=== PATIENT | female | born 1985 | race Caucasian/White ===

== ENCOUNTER 2016-05-05 09:41 | Emergency (ER) | payer OTHER ==
[~2016-05-05] VITALS: Ht 165.1 cm; Wt 75.0 kg
[~2016-05-05 09:41] MED LIST: AUGM875T PO; IBUP-232 PO; METH750T2 PO; MOBI15TA PO
[2016-05-05 09:42] VITALS: BP 140/105; PULSE 100; RESP 20; TEMP 98; O2SAT 98
[2016-05-05 09:59] VITALS: BP 152/105; PULSE 104; RESP 18; O2SAT 99
[2016-05-05] MEDS ORDERED: oxyCODONE/ACETAMINOPHEN 5 MG/325 MG TAB PO ONE (10:15)
--- NOTE | 2016-05-05 10:21 | PD ---
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 States she found out her boyfriend was cheating on her and is concern about STD. Pt denies any current vaginal discharge but is on her menstrual period so have vaginal bleeding. Denies any fever, chest pain, sob, vomiting, abdominal pain. Pt states she has burning when she urinates. Denies any history of GC/chlamydia. PFSH Past Medical History Anxiety: Yes Depression: Yes Diminished Hearing: Yes Medical other: Yes (HERNIATED DISKS C4-T1, L4-5) ?: Not LMP: 05/05/2016 : 1 Para: 1 Past Surgical History Surgical History: No Previous Surgery Social History Alcohol Use: Yes (social) Tobacco Use: Yes (/2 ppd) Substance Use: No Allergies-Medications (Allergen,Severity, Reaction): Coded Allergies: No Known Allergies (Verified , 05/05/16) Reported Meds & Prescriptions Reported Meds & Active Scripts Active Lortab (Hydrocodone-Acetaminophen) 5-325 Mg Tab 1 Tab PO Q6H PRN Acyclovir 400 Mg Tab 400 Mg PO TID 5 Days Review of Systems Except as stated in HPI: all other systems reviewed are Neg Physical Exam Narrative GENERAL: 30yo F not in acute distress but crying, visibly upset. SKIN: Warm and dry. HEAD: Atraumatic. Normocephalic. CARDIOVASCULAR: Regular rate and rhythm. No murmur appreciated. RESPIRATORY: No accessory muscle use. Clear to auscultation. Breath sounds equal bilaterally. GASTROINTESTINAL: Abdomen soft, non-tender, nondistended. No rebound tenderness or guarding. PELVIC: Small circular superficial ulceration in lateral to right vulva and perineum. Small vesicular lesions on right vulva. Small area of induration right of vulva that is likely early abscess, not ready to be drained yet. No vaginal discharge. No CMT or adnexal tenderness bilaterally. MUSCULOSKELETAL: No obvious deformities. No clubbing. No cyanosis. No edema. NEUROLOGICAL: Awake and alert. No obvious cranial nerve deficits. Motor grossly within normal limits. Normal speech. PSYCHIATRIC: Appropriate mood and affect; insight and judgment normal. Data Data Last Documented VS Vital Signs Date Time Temp Pulse Resp B/P Pulse Ox O2 Delivery O2 Flow Rate FiO2 05/05/16 11:18 96 18 150/80 96 Room Air 05/05/16 09:42 98.0 Orders Gc And Chlamydia Pcr (05/05/16 10:14) Wet Prep Profile (05/05/16 10:14) Urinalysis - C+S If Indicated (05/05/16 10:14) Oxycodone-Acetamin 5-325 Mg (Percocet (05/05/16 10:15) Ed Urine Pregnancytest Poc (05/05/16 10:14) Acyclovir (Zovirax) (05/05/16 10:39) Labs Laboratory Tests Test 05/05/16 10:35 Urine Color YELLOW Urine Turbidity CLEAR Urine pH 5.5 Urine Specific [place] 1.014 Urine Protein NEG mg/dL Urine Glucose (UA) NEG mg/dL Urine Ketones NEG mg/dL Urine Occult Blood MOD Urine Nitrite NEG Urine Bilirubin NEG Urine Urobilinogen LESS THAN 2.0 MG/DL Urine Leukocyte Esterase NEG Urine RBC 6 /hpf Urine WBC 1 /hpf Urine Transitional Epithelial <1 /hpf Cells Microscopic Urinalysis Comment CULT NOT INDICATED Clue Cells (Wet Prep) NONE SEEN Vaginal Trichomonas (Wet Prep) NONE SEEN Vaginal Yeast (Wet Prep) NONE SEEN MDM Medical Decision Making Medical Screen Exam Complete: Yes Emergency Medical Condition: Yes Differential Diagnosis Genital herpes vs. chlamydia vs. gonorrhea Narrative Course 30yo F with c/o painful lesions in vagina that is likely genital herpes. Pt also with what appears to be early abscess and recommended pt to do sitz bath. Pt given acyclovir 400mg PO and percocet 5-325mg PO. Pt is nontoxic appearing. Will check UA and wet prep. Urine negative. UA negative for leukocyte or nitrite. Wet prep negative. Return precautions given. Repeat HR normal. Still with elevated BP which pt will follow up with her own PMD. Diagnosis Primary Impression: Genital herpes Qualified Code: A60.04 - Herpes simplex vulvovaginitis Patient Instructions: General Instructions Departure Forms: Tests/Procedures Additional Instructions: Please follow up with TRIM SETTER in 3-7 days. Return to the ED if symptoms worsen. Med/Other Pt SpecificInfo: Prescription(s) given Scripts Hydrocodone-Acetaminophen (Lortab)5-325 Mg Tab1 Tab PO Q6H PRN (PAIN) #10 TAB Ref 0 Prov:Heather Red DO 05/05/16 Acyclovir 400 Mg [id number] Mg PO TID 5 Days Ref 0 Prov:Heather Red DO 05/05/16 Disposition: 01 DISCHARGE HOME Condition: Stable Heather Red DO May 05, 2016 10:21
[2016-05-05] MEDS ORDERED: ACYCLOVIR 200 MG CAP PO STA (10:39)
[2016-05-05] MEDS ORDERED: ACYC400T PO (10:45)
[2016-05-05] MEDS ORDERED: HYDR-3533 PO (10:45)
[2016-05-05 11:12] LABS: BLOOD, URINE MOD (NEG); GLUCOSE,URINE NEG (NEG); KETONE, URINE NEG (NEG); NITRITE,URINE NEG (NEG); PH, URINE 5.5 (5.0-8.5); TRANSITIONAL EPI CELLS, URINE <1 /hpf; URINE COLOR YELLOW (YELLW/STRAW)
[2016-05-05 11:14] LABS: COMMENT (UR) CULT NOT INDICATED; CULTURE IF INDICATED CULT NOT INDICATED
[2016-05-05 11:18] VITALS: BP 150/80; PULSE 96; RESP 18; O2SAT 96
[2016-05-05 13:11] LABS: CHLAMYDIA PCR NOT DETECTED (NOT DETECT); NEISSERIA PCR NOT DETECTED (NOT DETECT)
== END 2016-05-05 11:45 | disposition home or self-care (01) ==
LOC: NEPA 09:41
DX: F17.210 Nicotine dependence, cigarettes, uncomplicated (principal); A60.00 Herpesviral infection of urogenital system, unspecified
CPT/HCPCS: 81001; 84703; 87210; 87491; 87591; 99282

== ENCOUNTER 2016-05-29 15:05 | Emergency (ER) | payer OTHER ==
[~2016-05-29] VITALS: Ht 165.1 cm; Wt 74.0 kg
[~2016-05-29 15:05] MED LIST changes: +ACYC400T PO; -AUGM875T PO; +HYDR-3533 PO; -IBUP-232 PO; -METH750T2 PO; -MOBI15TA PO
[2016-05-29 15:07] VITALS: BP 160/87; PULSE 97; RESP 15; TEMP 98; O2SAT 95
--- NOTE | 2016-05-29 15:39 | PD ---
HPI Chief Complaint: Skin Problem Time Seen by Provider: 15:39 Travel History International Travel<30 days: No Contact w/Intl Traveler<30days: No Traveled to known affect area: No History of Present Illness HPI 89-year-old female presents to the emergency Department with complaint of an abscess to her right groin area that has been there for about a month. She reports being seen here a few weeks ago and was treated for genital herpes. She said the abscess with her at the time but was too small for drainage. The doctor told her to do warm compresses which she is been doing, but they said has become larger and more painful. She denies fever, chills, nausea, vomiting. Denies vaginal discharge, odor, itch, lesions. Denies abdominal pain. Reports dysuria. Denies hematuria, urgency, frequency. Last menstrual period was in April some time. Denies risk of . No known allergies. No other modifying factors or associated signs and symptoms. PFSH Past Medical History Anxiety: Yes Depression: Yes Diminished Hearing: Yes : 1 Para: 1 Social History Alcohol Use: Yes (social) Tobacco Use: Yes (/2 ppd) Substance Use: No Allergies-Medications (Allergen,Severity, Reaction): Coded Allergies: No Known Allergies (Verified , 05/05/16) Reported Meds & Prescriptions Reported Meds & Active Scripts Active Ibuprofen 800 Mg Tab 800 Mg PO Q6HR PRN Bactrim DS (Sulfamethoxazole-Trimethoprim) 800-160 Mg Tab 1 Tab PO BID 10 Days Keflex (Cephalexin) 500 Mg Cap 500 Mg PO Q6H 10 Days Review of Systems Except as stated in HPI: all other systems reviewed are Neg Physical Exam Narrative GENERAL: Well-nourished, well-developed patient, in no acute distress; afebrile , nontoxic-appearing SKIN: There is an indurated area in the right upper inner thigh which measures about 4 cm in diameter. It is fluctuant but there is no pointing or drainage. There is a zone of inflammation around it but no lymphangitis. No groin lymphadenopathy. HEAD: Atraumatic. Normocephalic. EYES: Pupils equal and round. No scleral icterus. No injection or drainage. ENT: Mucosa pink and moist. Airway patent. NECK: Trachea midline. CARDIOVASCULAR: Regular rate. RESPIRATORY: No accessory muscle use. GASTROINTESTINAL: Rounded. MUSCULOSKELETAL: No obvious deformities. No clubbing. No cyanosis. No edema. NEUROLOGICAL: Awake and alert. Oriented 3. No obvious cranial nerve deficits. Motor grossly within normal limits. Normal speech. PSYCHIATRIC: Appropriate mood and affect; insight and judgment normal. Data Data Last Documented VS Vital Signs Date Time Temp Pulse Resp B/P Pulse Ox O2 Delivery O2 Flow Rate FiO2 05/29/16 15:07 98.0 97 15 160/87 95 Orders Urinalysis - C+S If Indicated (05/29/16 15:39) Ed Urine Pregnancytest Poc (05/29/16 15:39) Wound Culture And Gram Stain (05/29/16 16:08) Lidocaine 1% Inj (50 Ml) (Xylocaine 1% I (05/29/16 16:15) Ketorolac Inj (Toradol Inj) (05/29/16 16:15) Urine Culture (05/29/16 16:00) Labs Laboratory Tests Test 05/29/16 16:00 Urine Color YELLOW Urine Turbidity HAZY Urine pH 6.0 Urine Specific [place] 1.020 Urine Protein TRACE mg/dL Urine Glucose (UA) NEG mg/dL Urine Ketones NEG mg/dL Urine Occult Blood MOD Urine Nitrite NEG Urine Bilirubin NEG Urine Urobilinogen LESS THAN 2.0 MG/DL Urine Leukocyte Esterase MOD Urine RBC 15 /hpf Urine WBC 29 /hpf Urine Squamous Epithelial 4 /hpf Cells Urine Bacteria RARE /hpf Urine Mucus FEW /lpf Microscopic Urinalysis Comment CULTURE INDICATED MDM Medical Decision Making Medical Screen Exam Complete: Yes Emergency Medical Condition: Yes Medical Record Reviewed: Yes Differential Diagnosis Abscess, Bartholin Abscess, vaginal abscess Narrative Course 30-year-old female with an abscess to her right upper inner thigh. Patient is afebrile. Nontoxic appearing. Patient denies fever, chills, nausea, vomiting. The abscess was incised and drained by ANURAG Grewal. See her procedure note for drainage. Wound culture pending. Toradol administered in ER. Patient up-to-date on tetanus vaccination. 1723: Urinalysis was signs of infection. Ibuprofen, Keflex and Bactrim prescribed for home. Instructed patient to follow up to have packing removed in 48 hours and she verbalized understanding and agreement. Patient is medically cleared and stable for discharge. Discussed reasons to return to the emergency department. Instructed patient to follow up with primary care provider. Patient agrees with treatment plan. The patients vital signs are stable and the patient is stable for outpatient follow-up and treatment. Patient discharged home, stable and in no acute distress. Diagnosis Primary Impression: Abscess Additional Impression: UTI (urinary tract infection) Qualified Code: N39.0 - Urinary tract infection without hematuria, site unspecified Referrals: Primary Care Physician Patient Instructions: Abscess (ED), Abscess Follow-up (ED), Abscess Incision and Drainage (ED), General Instructions, Urinary Tract Infection in Women (ED) Departure Forms: Tests/Procedures, Work Release Enter return to work date: Jun 01, 2016 Additional Instructions: Complete full course of antibiotics Warm compresses to the affected area Keep area clean and dry Ibuprofen or Tylenol as directed and as needed for pain and inflammation Return to the emergency department or follow-up with your primary care provider in 48 hours for packing removal Follow-up with primary care provider Return to emergency department immediately with worsening of symptoms Med/Other Pt SpecificInfo: Prescription(s) given Scripts Ibuprofen 800 Mg [id number] Mg PO Q6HR PRN (PAIN) #30 TAB Ref 0 Prov:Mary Will 05/29/16 Sulfamethoxazole-Trimethoprim (Bactrim DS)800-160 Mg Tab1 Tab PO BID 10 Days Ref 0 Prov:Mary Will 05/29/16 Cephalexin (Keflex)500 Mg [id number] Mg PO Q6H 10 Days Ref 0 Prov:Mary Will 05/29/16 Disposition: 01 DISCHARGE HOME Condition: Stable Mary Will May 29, 2016 15:39
[2016-05-29] MEDS ORDERED: IBUP800T23 PO (16:11)
[2016-05-29] MEDS ORDERED: CEPH-460 PO (16:11)
[2016-05-29] MEDS ORDERED: BACT800T5 PO (16:11)
[2016-05-29] MEDS ORDERED: KETOROLAC TROMETHAMINE 60 MG/2 ML (IM) VIAL IM ONE (16:15)
[2016-05-29] MEDS ORDERED: LIDOCAINE HCL 1% 50 ML VIAL INFIL ONE (16:15)
[2016-05-29 16:49] LABS: BACTERIA, URINE RARE /hpf; BLOOD, URINE MOD (NEG); COMMENT (UR) CULTURE INDICATED; CULTURE IF INDICATED CULTURE INDICATED; GLUCOSE,URINE NEG (NEG); KETONE, URINE NEG (NEG); MUCUS URINE FEW /lpf (OCC); NITRITE,URINE NEG (NEG); SQUAMOUS EPITHELIAL CELL URINE 4 /hpf (0-5); URINE COLOR YELLOW (YELLW/STRAW)
--- NOTE | 2016-05-29 17:45 | PD ---
Physical Exam Date Seen by Provider: May 29, 2016 Narrative For full history and physical examination please see previous provider's note. I was asked to perform an I&D to right upper thigh abscess. Data Data Last Documented VS Vital Signs Date Time Temp Pulse Resp B/P Pulse Ox O2 Delivery O2 Flow Rate FiO2 05/29/16 15:07 98.0 97 15 160/87 95 Orders Urinalysis - C+S If Indicated (05/29/16 15:39) Ed Urine Pregnancytest Poc (05/29/16 15:39) Wound Culture And Gram Stain (05/29/16 16:08) Lidocaine 1% Inj (50 Ml) (Xylocaine 1% I (05/29/16 16:15) Ketorolac Inj (Toradol Inj) (05/29/16 16:15) Urine Culture (05/29/16 16:00) Labs Laboratory Tests Test 05/29/16 16:00 Urine Color YELLOW Urine Turbidity HAZY Urine pH 6.0 Urine Specific [place] 1.020 Urine Protein TRACE mg/dL Urine Glucose (UA) NEG mg/dL Urine Ketones NEG mg/dL Urine Occult Blood MOD Urine Nitrite NEG Urine Bilirubin NEG Urine Urobilinogen LESS THAN 2.0 MG/DL Urine Leukocyte Esterase MOD Urine RBC 15 /hpf Urine WBC 29 /hpf Urine Squamous Epithelial 4 /hpf Cells Urine Bacteria RARE /hpf Urine Mucus FEW /lpf Microscopic Urinalysis Comment CULTURE INDICATED MDM Medical Record Reviewed: Yes Supervised Visit with CORRY: No Procedures Procedure Narrative After the risks and benefits were discussed the following procedure was performed: INCISION AND DRAINAGE OF ABSCESS: The area was prepped and was sterilely draped. A subcutaneous wheal of 2 % Xylocaine with a total number to mL was used to anesthetize the area. The area was properly anesthetized. A number 11 scalpel was used to make a 1-cm incision across the area of the abscess. Cultures were obtained. The abscess was drained an irrigated with normal saline. Quarter inch iodoform packing was placed in the wound. Sterile dressing applied. Patient advised to have packing removed in two days. Diagnosis Primary Impression: Abscess Additional Impression: UTI (urinary tract infection) Qualified Code: N39.0 - Urinary tract infection without hematuria, site unspecified Referrals: Primary Care Physician Patient Instructions: General Instructions, Urinary Tract Infection in Women ( ED), Abscess Incision and Drainage (ED), Abscess (ED), Abscess Follow-up (ED) Departure Forms: Work Release, Enter return to work date: Tests/Procedures Additional Instruction: Complete full course of antibiotics Warm compresses to the affected area Keep area clean and dry Ibuprofen or Tylenol as directed and as needed for pain and inflammation Return to the emergency department or follow-up with your primary care provider in 48 hours for packing removal Follow-up with primary care provider Return to emergency department immediately with worsening of symptoms Scripts Ibuprofen 800 Mg [id number] Mg PO Q6HR PRN (PAIN) #30 TAB Ref 0 Prov:Mary Will 05/29/16 Sulfamethoxazole-Trimethoprim (Bactrim DS)800-160 Mg Tab1 Tab PO BID 10 Days Ref 0 Prov:Mary Will 05/29/16 Cephalexin (Keflex)500 Mg [id number] Mg PO Q6H 10 Days Ref 0 Prov:Mary Will 05/29/16 Disposition: 01 DISCHARGE HOME Condition: Stable Sofi Knowles May 29, 2016 17:45
== END 2016-05-29 17:41 | disposition home or self-care (01) ==
LOC: NEPB 15:05
DX: N39.0 Urinary tract infection, site not specified (principal); L02.214 Cutaneous abscess of groin; B96.29 Other Escherichia coli [E. coli] as the cause of diseases classified elsewhere; B95.62 Methicillin resistant Staphylococcus aureus infection as the cause of diseases classified elsewhere
CPT/HCPCS: 10061; 81001; 84703; 86403; 87070; 87077; 87086; 87186; 96372; 99283; J1885; 87205

== ENCOUNTER 2016-05-31 09:32 | Emergency (ER) | payer OTHER ==
[~2016-05-31] VITALS: Ht 165.1 cm; Wt 72.0 kg
[~2016-05-31 09:32] MED LIST changes: -ACYC400T PO; +BACT800T5 PO; +CEPH-460 PO; -HYDR-3533 PO; +IBUP800T23 PO
[2016-05-31 09:35] VITALS: BP 165/112; PULSE 98; RESP 20; TEMP 98.1; O2SAT 98
--- NOTE | 2016-05-31 10:35 | PD ---
HPI Chief Complaint: Wound/Suture/Staple Re-Check Time Seen by Provider: 10:34 Travel History International Travel<30 days: No Contact w/Intl Traveler<30days: No Traveled to known affect area: No History of Present Illness HPI 30-year-old female presents to the emergency department for evaluation of vaginal abscess. Patient was seen in our emergency department 2 days ago for vaginal abscess and had an incision and drainage at that time. States she is here to have the packing removed. She states that the swelling and redness has improved although she is still having pain. Denies any fever, chills, nausea, vomiting. States she has been taking the antibiotics as prescribed. No other complaints. PFSH Past Medical History Anxiety: Yes Depression: Yes Diminished Hearing: Yes : 1 Para: 1 Social History Alcohol Use: Yes (social) Tobacco Use: Yes (1/2 ppd) Substance Use: No Allergies-Medications (Allergen,Severity, Reaction): Coded Allergies: No Known Allergies (Verified , 05/31/16) Reported Meds & Prescriptions Reported Meds & Active Scripts Active Lortab (Hydrocodone-Acetaminophen) 5-325 Mg Tab 1 Tab PO Q6H PRN Ibuprofen 800 Mg Tab 800 Mg PO Q6HR PRN Bactrim DS (Sulfamethoxazole-Trimethoprim) 800-160 Mg Tab 1 Tab PO BID 10 Days Keflex (Cephalexin) 500 Mg Cap 500 Mg PO Q6H 10 Days Review of Systems Except as stated in HPI: all other systems reviewed are Neg Physical Exam Narrative GENERAL: Well-nourished and well-developed pleasant patient in no acute distress who is nontoxic appearing. SKIN: Warm and dry. There is a 1 cm opening to the right inner thigh with surrounding area of induration and tenderness to palpation. No discharge or drainage. No fluctuance. Performed in the presence of Lexie RN. HEAD: Normocephalic and atraumatic. EYES: No injection, drainage, or hyphema noted. PERRLA. EOMI. ENT: No nasal drainage noted. Oropharynx is clear. NECK: Supple and the trachea is midline. CARDIOVASCULAR: Regular rate and rhythm. RESPIRATORY: Breath sounds are equal bilaterally with no accessory muscle use, wheezing, rhonchi, or crackles. MUSCULOSKELETAL: No obvious deformities, swelling, cyanosis, or ecchymosis is present throughout the upper and lower extremities. Patient has full range of motion without any signs of neurovascular compromise. NEUROLOGICAL: Awake, alert, and oriented. Normal speech and gait. Cranial nerves are grossly intact. Data Data Last Documented VS Vital Signs Date Time Temp Pulse Resp B/P Pulse Ox O2 Delivery O2 Flow Rate FiO2 05/31/16 09:35 98.1 98 20 165/112 98 Room Air MDM Medical Decision Making Medical Screen Exam Complete: Yes Emergency Medical Condition: Yes Differential Diagnosis Abscess versus cellulitis versus cyst Narrative Course 30-year-old female presents to the emergency department for evaluation of abscess status post I&D. Patient is afebrile, vital signs are stable. She is reporting that the redness and swelling has improved since drainage and antibiotics. She still having pain due to the location of her abscess being in her inner thigh and it constantly rubs on her pants and her other leg. She denies having any fever. Packing is removed and there is no drainage. He does appear to be healing well, there are still some induration around the abscess. Encouraged warm compresses and continued antibiotic therapy. We'll give her a short course of Lortab for pain. Discussed signs and symptoms and when to return to the emergency department. Patient verbalizes understanding and agreement with treatment plan. Diagnosis Primary Impression: Abscess Referrals: Primary Care Physician Patient Instructions: Abscess Follow-up (ED), General Instructions Additional Instructions: Apply warm compresses to the area. Continue taking antibiotics as prescribed. Do not take Lortab with alcohol or while driving. Follow-up with your Primary Care Physician. Return to the ED for any acute worsening of symptoms. Med/Other Pt SpecificInfo: Prescription(s) given Scripts Hydrocodone-Acetaminophen (Lortab)5-325 Mg Tab1 Tab PO Q6H PRN (PAIN GREATER THAN 6) #10 TAB Ref 0 Prov:Willy Martinez MD 05/31/16 Disposition: 01 DISCHARGE HOME Condition: Stable Mary Thibodeaux May 31, 2016 10:35
[2016-05-31] MEDS ORDERED: HYDR-3533 PO (11:03)
== END 2016-05-31 11:11 | disposition home or self-care (01) ==
LOC: NEPB 09:32
DX: N76.0 Acute vaginitis (principal); Z48.01 Encounter for change or removal of surgical wound dressing
CPT/HCPCS: 99282

== ENCOUNTER 2016-10-09 05:20 | Emergency (ER) | payer OTHER ==
[~2016-10-09 05:20] MED LIST changes: +HYDR-3533 PO
[2016-10-09 05:21] VITALS: BP 150/101; PULSE 107; TEMP 97.6; O2SAT 97
[2016-10-09 05:37] VITALS: BP 140/98; PULSE 91; RESP 18; O2SAT 98
[2016-10-09] MEDS ORDERED: SODIUM CHLOR 0.9% 1000 ML INJ 1,000 ML IV SCH (05:37)
[2016-10-09] MEDS ORDERED: methylPREDNISolone SOD SUCC 125 MG/2 ML VIAL IVP ONE (05:45)
[2016-10-09] MEDS ORDERED: FAMOTIDINE 20 MG/2 ML VIAL IV PUSH ONE (05:45)
[2016-10-09] MEDS ORDERED: EPINEPHrine HCL (1:1000) 1 MG/ML VIAL IM ONE (05:45)
[2016-10-09] MEDS ORDERED: RESP: ALBUTEROL 2.5 MG/3 ML NEB (SCH) INH ONE (05:45)
[2016-10-09] MEDS ORDERED: diphenhydrAMINE HCL 50 MG/ML VIAL IVP ONE (05:45)
[2016-10-09] MEDS ORDERED: SODIUM CHLORIDE 0.9% FLUSH 10 ML FLUSH IV FLUSH PRN (05:45)
[2016-10-09] MEDS ORDERED: PANTOPRAZOLE SODIUM 40 MG VIAL IV PUSH ONE (06:30)
[2016-10-09] MEDS ORDERED: BENA25TA6 PO (06:43)
[2016-10-09] MEDS ORDERED: EPIP0.3I IM (06:43)
[2016-10-09] MEDS ORDERED: ZANT300T PO (06:43)
[2016-10-09] MEDS ORDERED: MEDR4PAK PO (06:43)
[2016-10-09] MEDS ORDERED: ALBUAER3 INH (06:44)
--- NOTE | 2016-10-09 06:50 | PD ---
HPI Chief Complaint: Allergic/Adverse Reaction Time Seen by Provider: 05:37 Travel History International Travel<30 days: No Contact w/Intl Traveler<30days: No Traveled to known affect area: No History of Present Illness HPI 31-year-old female presents to the emergency department by private vehicle for evaluation of possible allergic reaction. Patient states that she had had pruritus and swelling of her lips. Patient denies any known allergen exposure. Patient denies any previous history of allergic reaction. No identified urticaria but does complain of generalized pruritus. Patient has had some mild hoarseness but also complains of her mouth being very dry and feeling like she is wheezing. No near-syncope or syncope. No chest pain or shortness of breath. Patient also has some abdominal pain but has previous history of peptic ulcer disease. No report of bilious emesis no coffee-ground emesis or hematemesis. Patient denies history of asthma or reactive airways disease. Patient does admit to alcohol use and tobacco use. PFSH Past Medical History Narrative Medical Anxiety depression, tobacco use alcohol use; nursing notes reviewed Anxiety: Yes Depression: Yes Diminished Hearing: Yes ?: Not : 1 Para: 1 Past Surgical History Surgical History: No Previous Surgery Social History Alcohol Use: Yes (social) Tobacco Use: Yes (1/2PPD) Substance Use: No Allergies-Medications (Allergen,Severity, Reaction): 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 Reported Meds & Prescriptions Reported Meds & Active Scripts Active Review of Systems Except as stated in HPI: all other systems reviewed are Neg General / Constitutional: No: Fever, Chills Eyes: No: Visual changes HENT: No: Headaches, Lightheadedness Cardiovascular: No: Chest Pain or Discomfort Respiratory: Positive: Wheezing Gastrointestinal: No: Nausea, Vomiting Genitourinary: No: Dysuria Musculoskeletal: No: Myalgias, Arthralgias Skin: Positive Rash, Positive Itching, No Hives Neurologic: No: Weakness Psychiatric: No: Anxiety Hematologic/Lymphatic: No: Lymph Node Enlargement Physical Exam Narrative GENERAL: Well-developed well-nourished female in no acute distress no respiratory distress with some hoarseness no stridor SKIN: Warm and dry. Evidence of excoriation no urticaria HEAD: Normocephalic. EYES: No scleral icterus. No injection or drainage. NECK: Supple, trachea midline. No JVD or lymphadenopathy. CARDIOVASCULAR: Increased Regular rate and rhythm without murmurs, gallops, or rubs. RESPIRATORY: Breath sounds equal bilaterally few expiratory wheezes and rhonchi. No accessory muscle use. GASTROINTESTINAL: Abdomen soft, non-tender, nondistended. MUSCULOSKELETAL: No cyanosis, or edema. BACK: Nontender without obvious deformity. No CVA tenderness. Data Data Last Documented VS Vital Signs Date Time Temp Pulse Resp B/P Pulse Ox O2 Delivery O2 Flow Rate FiO2 10/09/16 05:40 91 22 97 10/09/16 05:37 140/98 10/09/16 05:21 97.6 Orders Ecg Monitoring (10/09/16 05:37) Iv Access Insert/Monitor (10/09/16 05:37) Oximetry (10/09/16 05:37) Diphenhydramine Inj (Benadryl Inj) (10/09/16 05:45) Methylprednisolone So Succ Inj (Solumedr (10/09/16 05:45) Famotidine Inj (Pepcid Inj) (10/09/16 05:45) Albuterol Neb (Albuterol Neb) (10/09/16 05:45) Sodium Chlor 0.9% 1000 Ml Inj (Ns 1000 M (10/09/16 05:37) Sodium Chloride 0.9% Flush (Ns Flush) (10/09/16 05:45) Epinephrine (1:1000) Inj (Adrenalin (1:1 (10/09/16 05:45) Alcohol (Ethanol) (10/09/16 05:37) Pantoprazole Inj (Protonix Inj) (10/09/16 06:30) Labs Laboratory Tests Test 10/09/16 05:41 Ethyl Alcohol Level 184 MG/DL MDM Medical Decision Making Medical Screen Exam Complete: Yes Emergency Medical Condition: Yes Medical Record Reviewed: Yes (. In the ED 11) Differential Diagnosis Allergic reaction, allergic dermatitis, reactive airways disease, angioedema, COPD, alcohol intoxication, dehydration, no evidence for anaphylaxis Narrative Course Patient with some mild hoarseness some mild lipedema no posterior pharyngeal edema airway is patent no erythema patient is identified to have some bronchitic wheeze; patient placed on security monitor IV access obtained patient received epinephrine 1-1000 0.3 cc along with Solu-Medrol 125 mg IV Pepcid 20 mg IV and Benadryl 25 mg IV and albuterol nebulizer treatment times one Patient administered IV fluids Serum alcohol 183, elevated At 6:49 AM patient clinically improved resting comfortably no pruritus denies any sensation of lip swelling no difficulty with swallowing lung sounds are clear to auscultation Patient presents with idiopathic allergic reaction dehydration and alcohol ingestion;@6:50 AM patient is clinically improved while given additional IV fluid hydration and patient will be discharged with prescriptions for albuterol inhaler and Zantac Medrol Dosepak Benadryl and an EpiPen. Diagnosis Primary Impression: Allergic reaction Qualified Code: T78.40XA - Allergic reaction, initial encounter Additional Impressions: Alcohol use H/O gastric ulcer Tobacco dependence, continuous Referrals: Primary Care Physician 2 days Patient Instructions: General Instructions Additional Instructions: Do not drink alcoholic beverages Take Benadryl every 4-6 hours as needed for pruritus or hives OR may take Zyrtec 10 mg daily Complete Medrol dosepak as prescribed Use EpiPen as prescribed as needed for recurrent allergic reaction Increase fluid hydration Return to the emergency department for any concerns or change in condition No work times one day Stop smoking cigarettes Use opiate while inhaler as needed for wheezing or shortness of breath Med/Other Pt SpecificInfo: Prescription(s) given Scripts Albuterol 8.5 GM Inh (Proair Hfa 8.5 GM Inh)90 Mcg/Act Aer2 Puff INH Q4-6H PRN ( SHORTNESS OF BREATH) #1 INHALER Ref 0 108 mcg/actuation Prov:Patrica Bunch MD 10/09/16 Ranitidine (Zantac)300 Mg Pbj060 Mg PO DAILY 7 Days Ref 0 Prov:Patrica Bunch MD 10/09/16 Epinephrine Inj (Epipen 2-Jack Inj)0.3 Mg/0.3 Ml Pfpen0.3 Mg IM ONCE PRN ( ALLERGIC REACTION) #1 PACK Ref 0 Prov:Patrica Bunch MD 10/09/16 Methylprednisolone Dosepak (Medrol Dosepak)4 Mg Dspk4 Mg PO DIRECTED #1 DSPK Ref 0 Per Pharmacist direction Prov:Patrica Bunch MD 10/09/16 Diphenhydramine HCl (Benadryl Allergy)25 Mg Ieuflo22-66 Mg PO Q4-6H PRN ( ALLERGIC REACTION) #30 Prov:Patrica Bunch MD 10/09/16 Disposition: 01 DISCHARGE HOME Condition: Stable Patrica Bunch MD Oct 09, 2016 06:50
[2016-10-09 07:34] VITALS: BP 129/89; PULSE 96; RESP 16; O2SAT 97
[2016-10-09 09:59] VITALS: BP 132/74; PULSE 96; RESP 16; O2SAT 98
== END 2016-10-09 10:08 | disposition home or self-care (01) ==
LOC: NEPC 05:20
DX: T78.40XA Allergy, unspecified, initial encounter (principal); R10.9 Unspecified abdominal pain; F17.200 Nicotine dependence, unspecified, uncomplicated; Z86.59 Personal history of other mental and behavioral disorders; Z87.19 Personal history of other diseases of the digestive system
CPT/HCPCS: 80307; 94664; 96361; 96372; 96374; 96375; 99284; C9113; J0171; J1200; J2930; J7030; J7613

== ENCOUNTER 2016-11-15 17:11 | Emergency (ER) | payer OTHER ==
[~2016-11-15] VITALS: Ht 165.1 cm; Wt 72.0 kg
[~2016-11-15 17:11] MED LIST changes: +ALBUAER3 INH; -BACT800T5 PO; +BENA25TA6 PO; -CEPH-460 PO; +EPIP0.3I IM; -HYDR-3533 PO; -IBUP800T23 PO; +MEDR4PAK PO; +ZANT300T PO
[2016-11-15 17:14] VITALS: BP 169/115; PULSE 95; RESP 22; TEMP 98.9; O2SAT 98
--- NOTE | 2016-11-15 17:32 | PD ---
Physical Exam Date Seen by Provider: Nov 15, 2016 Time Seen by Provider: 17:30 Narrative 31 y/o female here with Fall at local [employer] due to wet surface. Here with low back pain and TIMMONS. No Head Injury or LOC. Pain is 9/10. Vital signs reviewed. Patient stable. Awaiting Bed placement. Data Data Last Documented VS Vital Signs Date Time Temp Pulse Resp B/P Pulse Ox O2 Delivery O2 Flow Rate FiO2 11/15/16 17:14 98.9 95 22 169/115 98 MDM Medical Record Reviewed: Yes Supervised Visit with CORRY: Yes Condition: Stable Maximo Gutierrez Nov 15, 2016 17:32
[2016-11-15] MEDS ORDERED: DICL75TA PO (19:54)
[2016-11-15] MEDS ORDERED: ROBA500T PO (19:54)
--- NOTE | 2016-11-15 19:58 | PD ---
HPI Chief Complaint: Back/ Neck Pain or Injury Time Seen by Provider: 19:54 Travel History International Travel<30 days: No Contact w/Intl Traveler<30days: No Traveled to known affect area: No History of Present Illness HPI 31-year-old white female presents to emergency department for evaluation of a slip and fall at a [employer] shop. 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 She states that this had caused a puddle on the floor which she had slipped on. She states that her feet went out from underneath her and she fell onto her buttocks. She is complaining of pain in her left lower back and left buttocks. She also states that this has caused a migraine headache. Patient complains of tingling and decreased sensation in her left buttocks. She denies any acute bowel or bladder changes. She did not strike her head. No neck or upper back pain. Pain is moderate to severe. Worse with movement. Some relief with remaining still. Denies any history back problems. PFSH Past Medical History Narrative Medical Anxiety, depression Anxiety: Yes Depression: Yes Diminished Hearing: Yes Tetanus Vaccination: < 5 Years ?: Not LMP: now : 1 Para: 1 Past Surgical History Surgical History: No Previous Surgery Social History Alcohol Use: Yes (social) Tobacco Use: Yes (1/2PPD) Substance Use: No Allergies-Medications (Allergen,Severity, Reaction): 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 Reported Meds & Prescriptions Reported Meds & Active Scripts Active Robaxin (Methocarbamol) 500 Mg Tab 500 Mg PO QID Diclofenac Sodium DR (Diclofenac Sodium) 75 Mg Tabdr 75 Mg PO BID Proair Hfa 8.5 GM Inh (Albuterol Sulfate) 90 Mcg/Act Aer 2 Puff INH Q4-6H PRN 108 mcg/actuation Zantac (Ranitidine HCl) 300 Mg Tab 300 Mg PO DAILY 7 Days Epipen 2-Jack Inj (Epinephrine) 0.3 Mg/0.3 Ml Pfpen 0.3 Mg IM ONCE PRN Medrol Dosepak (Methylprednisolone) 4 Mg Dspk 4 Mg PO DIRECTED Per Pharmacist direction Benadryl Allergy (Diphenhydramine HCl) 25 Mg Tablet 25-50 Mg PO Q4-6H PRN Review of Systems Except as stated in HPI: all other systems reviewed are Neg Physical Exam Narrative GENERAL: Well-developed, well-nourished in no apparent distress. Nontoxic appearing. HEAD: Normocephalic, atraumatic. EYES: Pupils equal round and reactive. Extraocular motions intact. No scleral icterus. No injection or drainage. ENT: Nose clear. Throat without erythema, tonsillar hypertrophy or exudate. Uvula midline. Airway patent. NECK: Trachea midline. Supple, nontender, moves head freely. No central bony tenderness or spasm. CARDIOVASCULAR: Regular rate and rhythm without murmurs, gallops, or rubs. RESPIRATORY: Clear to auscultation. Breath sounds equal bilaterally. No wheezes , rales, or rhonchi. GASTROINTESTINAL: Abdomen soft, non-tender, nondistended. No hepato-splenomegaly , or palpable masses. No guarding. EXTREMITIES: No clubbing, cyanosis, or edema. No joint tenderness. BACK: No central bony tenderness to palpation of dorsal lumbar spine. Patient has left paralumbar tenderness with mild spasm. Negative straight leg raise bilaterally. No saddle anesthesia. Without deformity. No flank tenderness. NEUROLOGICAL: Awake, alert and oriented x 3 .Cranial nerves grossly intact. Motor and sensory grossly within normal limits. Normal speech. Data Data Last Documented VS Vital Signs Date Time Temp Pulse Resp B/P Pulse Ox O2 Delivery O2 Flow Rate FiO2 11/15/16 17:14 98.9 95 22 169/115 98 Orders Ketorolac Inj (Toradol Inj) (11/15/16 20:00) Orphenadrine Inj (Norflex Inj) (11/15/16 20:00) MDM Medical Decision Making Medical Screen Exam Complete: Yes Emergency Medical Condition: Yes Medical Record Reviewed: Yes Differential Diagnosis MDM: High Differential diagnoses: Fracture, sprain, strain, HNP, nerve or vascular injury , epidural abscess, pilonidal cyst Narrative Course This is a slip and fall with a lumbar contusion/sprain. Patient given Toradol 60 and Norflex 60 mg IM Diagnosis Primary Impression: slip and fall Additional Impression: lumbar contusion/sprain Patient Instructions: General Instructions Departure Forms: Tests/Procedures, Work Release Special Instructions: No work for 3 days. Additional Instructions: Rest. Ice for the next 3 days followed by heat . Flexeril and Voltaren. Follow-up with a primary care doctor in one week. Return to the ER for emergencies. Med/Other Pt SpecificInfo: Prescription(s) given Scripts Methocarbamol (Robaxin)500 Mg [id number] Mg PO QID #28 TAB Prov:Bereket Aguila MD 11/15/[address] 75 Mg Tabdr75 Mg PO BID #20 TAB Prov:Bereket Aguila MD 11/15/16 Disposition: 01 DISCHARGE HOME Condition: Stable Bebo Beltran Nov 15, 2016 19:58
[2016-11-15] MEDS ORDERED: ORPHENADRINE INJ 60 MG/2 ML AMP IM ONE (20:00)
[2016-11-15] MEDS ORDERED: KETOROLAC TROMETHAMINE 60 MG/2 ML (IM) VIAL IM ONE (20:00)
== END 2016-11-15 20:19 | disposition home or self-care (01) ==
LOC: NEPK 17:11
DX: S33.5XXA Sprain of ligaments of lumbar spine, initial encounter (principal); S30.0XXA Contusion of lower back and pelvis, initial encounter; R20.2 Paresthesia of skin; F41.9 Anxiety disorder, unspecified; F32.9 Major depressive disorder, single episode, unspecified; F17.200 Nicotine dependence, unspecified, uncomplicated; W18.30XA Fall on same level, unspecified, initial encounter; Y92.512 Supermarket, store or market as the place of occurrence of the external cause; Z79.899 Other long term (current) drug therapy
CPT/HCPCS: 96372; 99284; J1885; J2360

== ENCOUNTER 2016-12-10 12:40 | Observation (INO) | payer OTHER ==
[~2016-12-10] VITALS: Ht 165.1 cm; Wt 77.0 kg
[~2016-12-10 12:40] MED LIST changes: +DICL75TA PO; +PROPOFOL 200 MG/20 ML AMP IV ONE; +ROBA500T PO
--- NOTE | 2016-12-10 12:51 | PD ---
HPI . nausea, vomiting and diarrhea x 3 days Chief Complaint: nausea, vomiting and diarrhea for 3 days Time Seen by Provider: 12:51 Travel History International Travel<30 days: No Contact w/Intl Traveler<30days: No Traveled to known affect area: No History of Present Illness HPI 31-year-old female with history of ulcers in the past here with complaints of nausea, vomiting and diarrhea for the past 3 days. Patient says that she developed a sudden onset of the symptoms and it has not yet subsided. She reports 5 episodes of bowel movement this morning. She tells me that she may have vomited approximately 20 times today. She says she is unable to keep any thing down. She also reports some epigastric pain. She's not tried any over- the-counter medications or home remedies. She denies any fevers, but admits to chills. She does not have any sick contacts with similar symptoms. PFSH Past Medical History Anxiety: Yes Depression: Yes Diminished Hearing: Yes : 1 Para: 1 Social History Alcohol Use: Yes (social) Tobacco Use: Yes (1/2PPD) Substance Use: No Allergies-Medications (Allergen,Severity, Reaction): 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 Reported Meds & Prescriptions Reported Meds & Active Scripts Active No Active Prescriptions or Reported Medications Review of Systems General / Constitutional: No: Fever Eyes: No: Visual changes HENT: No: Headaches Cardiovascular: No: Chest Pain or Discomfort Respiratory: No: Shortness of Breath Gastrointestinal: Positive: Nausea, Vomiting, Diarrhea, Abdominal Pain ( epigastric ) Genitourinary: No: Dysuria Musculoskeletal: No: Pain Skin: No Rash Neurologic: No: Weakness Psychiatric: No: Depression Endocrine: No: Polydipsia Hematologic/Lymphatic: No: Easy Bruising Physical Exam Narrative GENERAL: AAO x 3, no acute distress, Well-nourished, well-developed patient. SKIN: Warm and dry. No visible rashes or bruising. HEAD: Normocephalic and atraumatic.EOM intact, PERRLA ENT: No nasal drainage noted. Mucous membranes pink. Airway patent. Moist mucous membranes NECK: Supple, trachea midline. No JVD. CARDIOVASCULAR: Regular rate and rhythm without murmurs, gallops, or rubs. RESPIRATORY: Breath sounds equal bilaterally. No accessory muscle use. No rhonchi or rales. GASTROINTESTINAL: Abdomen soft, tenderness in the right upper quadrant, epigastric area. No rebound or guarding. No Valdes sign or McBurney point tenderness. EXTREMITIES: No cyanosis or edema. BACK: No obvious deformity. NEURO: CN II-12 intact, trauma surgeon strength normal b/l, UE and LE 5/5, no focal deficits PSYCH: AAO x 3, normal affect. Data Data Last Documented VS Vital Signs Date Time Temp Pulse Resp B/P (MAP) Pulse Ox O2 Delivery O2 Flow Rate FiO2 12/10/16 12:59 99 Room Air 12/10/16 12:56 24 12/10/16 12:56 97.9 80 Orders Orders Complete Blood Count With Diff (12/10/16 12:55) Comprehensive Metabolic Panel (12/10/16 12:55) Lipase (12/10/16 12:55) Urinalysis - C+S If Indicated (12/10/16 12:55) Ct Abd/Pel W Iv Contrast(Rout) (12/10/16 12:55) Iv Access Insert/Monitor (12/10/16 12:55) Ecg Monitoring (12/10/16 12:55) Oximetry (12/10/16 12:55) Ondansetron Inj (Zofran Inj) (12/10/16 13:00) Sodium Chlor 0.9% 1000 Ml Inj (Ns 1000 M (12/10/16 12:55) Sodium Chloride 0.9% Flush (Ns Flush) (12/10/16 13:00) Ed Urine Pregnancytest Poc (12/10/16 12:55) Urine Culture (12/10/16 13:08) Prochlorperazine Inj (Compazine Inj) (12/10/16 13:45) Diphenhydramine Inj (Benadryl Inj) (12/10/16 13:45) Iohexol 350 Inj (Omnipaque 350 Inj) (12/10/16 13:57) Morphine Inj (Morphine Inj) (12/10/16 14:00) Ciprofloxacin 400 Mg Premix (Cipro 400 M (12/10/16 14:15) Metronidazole 500 Mg Inj (Flagyl 500 Mg (12/10/16 14:45) Admit Order (Ed Use Only) (12/10/16 15:18) Labs Laboratory Tests Test 12/10/16 13:08 White Blood Count 18.4 TH/MM3 Red Blood Count 4.22 MIL/MM3 Hemoglobin 14.2 GM/DL Hematocrit 42.9 % Mean Corpuscular Volume 101.7 FL Mean Corpuscular Hemoglobin 33.7 PG Mean Corpuscular Hemoglobin Concent 33.1 % Red Cell Distribution Width 14.1 % Platelet Count 316 TH/MM3 Mean Platelet Volume 7.5 FL Neutrophils (%) (Auto) 80.4 % Lymphocytes (%) (Auto) 15.1 % Monocytes (%) (Auto) 4.1 % Eosinophils (%) (Auto) 0.2 % Basophils (%) (Auto) 0.2 % Neutrophils # (Auto) 14.8 TH/MM3 Lymphocytes # (Auto) 2.8 TH/MM3 Monocytes # (Auto) 0.8 TH/MM3 Eosinophils # (Auto) 0.0 TH/MM3 Basophils # (Auto) 0.0 TH/MM3 CBC Comment DIFF FINAL Differential Comment Urine Color YELLOW Urine Turbidity HAZY Urine pH 6.5 Urine Specific [place] 1.021 Urine Protein 30 mg/dL Urine Glucose (UA) NEG mg/dL Urine Ketones 10 mg/dL Urine Occult Blood SMALL Urine Nitrite NEG Urine Bilirubin NEG Urine Urobilinogen LESS THAN 2.0 MG/DL Urine Leukocyte Esterase TRACE Urine RBC 7 /hpf Urine WBC 11 /hpf Urine Squamous Epithelial Cells 7 /hpf Urine Bacteria OCC /hpf Urine Hyaline Casts 1 /lpf Urine Mucus FEW /lpf Microscopic Urinalysis Comment CULTURE INDICATED Blood Urea Nitrogen 11 MG/DL Creatinine 0.71 MG/DL Random Glucose 108 MG/DL Total Protein 8.4 GM/DL Albumin 4.1 GM/DL Calcium Level 8.7 MG/DL Alkaline Phosphatase 68 U/L Aspartate Amino Transf (AST/SGOT) 40 U/L Alanine Aminotransferase (ALT/SGPT) 35 U/L Total Bilirubin 0.3 MG/DL Sodium Level 144 MEQ/L Potassium Level 3.0 MEQ/L Chloride Level 103 MEQ/L Carbon Dioxide Level 27.4 MEQ/L Anion Gap 14 MEQ/L Estimat Glomerular Filtration Rate 97 ML/MIN Lipase 124 U/L [facility] Medical Decision Making Medical Screen Exam Complete: Yes Emergency Medical Condition: Yes Medical Record Reviewed: Yes Differential Diagnosis Gastritis, gastritis, PUD, pancreatitis, cholecystitis, cholelithiasis Narrative Course 31-year-old female here with complaints of nausea, vomiting and diarrhea for the past 3 days. On examination patient does have some epigastric and right upper quadrant tenderness. Labs have been ordered including urine test, CBC, CMP and lipase. CT scan of the abdomen and pelvis is also been ordered. Patient given Zofran here in the ED. IV fluids have also been started. Laboratory Tests Test 12/10/16 13:08 White Blood Count 18.4 TH/MM3 Red Blood Count 4.22 MIL/MM3 Hemoglobin 14.2 GM/DL Hematocrit 42.9 % Mean Corpuscular Volume 101.7 FL Mean Corpuscular Hemoglobin 33.7 PG Mean Corpuscular Hemoglobin Concent 33.1 % Red Cell Distribution Width 14.1 % Platelet Count 316 TH/MM3 Mean Platelet Volume 7.5 FL Neutrophils (%) (Auto) 80.4 % Lymphocytes (%) (Auto) 15.1 % Monocytes (%) (Auto) 4.1 % Eosinophils (%) (Auto) 0.2 % Basophils (%) (Auto) 0.2 % Neutrophils # (Auto) 14.8 TH/MM3 Lymphocytes # (Auto) 2.8 TH/MM3 Monocytes # (Auto) 0.8 TH/MM3 Eosinophils # (Auto) 0.0 TH/MM3 Basophils # (Auto) 0.0 TH/MM3 CBC Comment DIFF FINAL Differential Comment Urine Color YELLOW Urine Turbidity HAZY Urine pH 6.5 Urine Specific [place] 1.021 Urine Protein 30 mg/dL Urine Glucose (UA) NEG mg/dL Urine Ketones 10 mg/dL Urine Occult Blood SMALL Urine Nitrite NEG Urine Bilirubin NEG Urine Urobilinogen LESS THAN 2.0 MG/DL Urine Leukocyte Esterase TRACE Urine RBC 7 /hpf Urine WBC 11 /hpf Urine Squamous Epithelial Cells 7 /hpf Urine Bacteria OCC /hpf Urine Hyaline Casts 1 /lpf Urine Mucus FEW /lpf Microscopic Urinalysis Comment CULTURE INDICATED Blood Urea Nitrogen 11 MG/DL Creatinine 0.71 MG/DL Random Glucose 108 MG/DL Total Protein 8.4 GM/DL Albumin 4.1 GM/DL Calcium Level 8.7 MG/DL Alkaline Phosphatase 68 U/L Aspartate Amino Transf (AST/SGOT) 40 U/L Alanine Aminotransferase (ALT/SGPT) 35 U/L Total Bilirubin 0.3 MG/DL Sodium Level 144 MEQ/L Potassium Level 3.0 MEQ/L Chloride Level 103 MEQ/L Carbon Dioxide Level 27.4 MEQ/L Anion Gap 14 MEQ/L Estimat Glomerular Filtration Rate 97 ML/MIN Lipase 124 U/L Last Impressions Abdomen/Pelvis CT 12/10/16 1255 Signed Impressions: Service Date/Time: Saturday, December 10, 2016 13:41 - CONCLUSION: Very minimal nonspecific bowel wall thickening in the colon without fluid or other ancillary signs of acute colitis. Philippe Baker MD FACR Patient appears to have elevated white count as well as urinary tract infection. 1517: Discussed with Dr. Zavala. Patient admitted for Observation. Diagnosis Primary Impression: Vomiting Qualified Codes: G43.A1 - Cyclical vomiting, intractable Additional Impression: UTI (urinary tract infection) Qualified Codes: N30.01 - Acute cystitis with hematuria Admitting Information Admitting Physician Requests: Admit Scripts No Active Prescriptions or Reported Meds Condition: Stable Charu Rubio Dec 10, 2016 12:51
[2016-12-10 12:52] VITALS: BP 152/107; PULSE 80; RESP 24; TEMP 97.9; O2SAT 100
[2016-12-10] MEDS ORDERED: SODIUM CHLOR 0.9% 1000 ML INJ 1,000 ML IV SCH (12:55)
[2016-12-10 12:56] VITALS: BP 152/107; PULSE 80; RESP 24; TEMP 97.9; O2SAT 100
[2016-12-10 12:59] VITALS: O2SAT 99
[2016-12-10] MEDS ORDERED: ONDANSETRON HCL 4 MG/2 ML VIAL IVP ONE (13:00)
[2016-12-10] MEDS ORDERED: SODIUM CHLORIDE 0.9% FLUSH 10 ML FLUSH IV FLUSH PRN ×2 (13:00→16:45)
[2016-12-10 13:23] LABS: AUTOMATED NEUTROPHIL # 14.8 TH/MM3 (1.8-7.7); BASOPHIL % 0.2 % (0.0-2.0); EOSINOPHIL % 0.2 % (0.0-4.0); HEMATOCRIT 42.9 % (35.0-46.0); HEMO FLAGS DIFF FINAL; LYMPH % 15.1 % (9.0-44.0); LYMPHOCYTE # 2.8 TH/MM3 (1.0-4.8); MEAN CELL VOLUME 101.7 FL (80.0-100.0); MEAN CORPUSCULAR HEMOGLOBIN 33.7 PG (27.0-34.0); MEAN CORPUSCULAR HGB CONC 33.1 % (32.0-36.0); MONO % 4.1 % (0.0-8.0); NEUT % 80.4 % (16.0-70.0); PLATELET COUNT 316 TH/MM3 (150-450); RED BLOOD COUNT 4.22 MIL/MM3 (4.00-5.30); RED CELL DISTRIBUTION WIDTH 14.1 % (11.6-17.2); WHITE BLOOD COUNT 18.4 TH/MM3 (4.0-11.0)
[2016-12-10 13:31] LABS: BACTERIA, URINE OCC /hpf; BLOOD, URINE SMALL (NEG); GLUCOSE,URINE NEG (NEG); HYALINE CAST, URINE 1 /lpf (RARE); KETONE, URINE 10 mg/dL (NEG); MUCUS URINE FEW /lpf (OCC); NITRITE,URINE NEG (NEG); PH, URINE 6.5 (5.0-8.5); SQUAMOUS EPITHELIAL CELL URINE 7 /hpf (0-5); URINE COLOR YELLOW (YELLW/STRAW)
[2016-12-10 13:33] LABS: COMMENT (UR) CULTURE INDICATED; CULTURE IF INDICATED CULTURE INDICATED
[2016-12-10 13:42] LABS: ALT (GPT) 35 U/L (10-53); ANION GAP 14 MEQ/L (5-15); AST (GOT) 40 U/L (15-37); BICARBONATE 27.4 MEQ/L (21.0-32.0); BLOOD UREA NITROGEN 11 MG/DL (7-18); CHLORIDE 103 MEQ/L (98-107); GLOMERULAR FILTRATION RATE 97 ML/MIN (>89); SODIUM (NA) 144 MEQ/L (136-145)
[2016-12-10 13:45] LABS: ALKALINE PHOSPHATASE 68 U/L (45-117); TOTAL BILIRUBIN ADULT 0.3 MG/DL (0.2-1.0)
[2016-12-10] MEDS ORDERED: PROCHLORPERAZINE INJ 10 MG/2 ML VIAL IV PUSH ONE (13:45)
[2016-12-10] MEDS ORDERED: diphenhydrAMINE HCL 50 MG/ML VIAL IV PUSH ONE (13:45)
[2016-12-10] MEDS ORDERED: IOHEXOL 350 MG/ML 10 ML VIAL (for RAD DIAG) IVCONTRAST ONE (13:57)
[2016-12-10] MEDS ORDERED: MORPHINE SULFATE 4 MG/ML INJ IV PUSH ONE ×2 (14:00→16:30)
[2016-12-10] MEDS ORDERED: CIPROFLOXACIN 400 MG PREMIX 200 ML IV ONE (14:15)
--- NOTE | 2016-12-10 14:36 | RADRPT ---
EXAM DATE/TIME: 12/10/2016 13:41 [facility] COMPARISON: No previous studies available for comparison. INDICATIONS : Nausea, vomiting, and diarrhea for three days. Mid abdominalpain. IV CONTRAST: 88 cc Omnipaque 350 (iohexol) IV ORAL CONTRAST: No oral contrast ingested. RADIATION DOSE: 9.96 CTDIvol (mGy) MEDICAL HISTORY : None SURGICAL HISTORY : None. ENCOUNTER: Initial ACUITY: 1 day PAIN SCALE: 4/10 LOCATION: Abdominal pain TECHNIQUE: Volumetric scanning of the abdomen and pelvis was performed. Using automated exposure control and ad justment of the mA and/or kV according to patient size, radiation dose was kept as low as reasonably achievable to obtain optimal diagnostic quality images. DICOM format image data is available electro nically for review and comparison. FINDINGS: LOWER LUNGS: The visualized lower lungs are clear. LIVER: Homogeneous density without lesion. There is no dilation of the biliary tree. No calcified gallston es. SPLEEN: Normal size without lesion. PANCREAS: Within normal limits. ADRENAL GLANDS: Within normal limits. RIGHT KIDNEY: Normal in size and shape. There is no mass, stone, or hydronephrosis. LEFT KIDNEY: Normal in size and shape. There is no mass, stone, or hydronephrosis.. VASCULAR: There is no aortic aneurysm. BOWEL/MESENTERY: Minimal nonspecific bowel wall thickening is evident without fluid. This could be of very early coli tis. RETROPERITONEUM: There is no lymphadenopathy. PELVIC CONTENTS: Bladder, are unremarkable ABDOMINAL WALL: Within normal limits. INGUINAL: There is no lymphadenopathy or hernia. MUSCULOSKELETAL: Within normal limits for patient age. CONCLUSION: Very minimal nonspecific bowel wall thickening in the colon without fluid or other ancillary signs of acute colitis. Philippe Baker MD FACR on December 10, 2016 at 14:32 Board Certified Radiologist. This report was verified electronically.
[2016-12-10] MEDS ORDERED: metroNIDAZOLE 500 MG INJ 100 ML IV ONE (14:45)
--- NOTE | 2016-12-10 15:53 | HHI.HP ---
HPI Service Family Medicine Primary Care Physician No Primary Care Physician Admission Diagnosis intractable vomiting/UTI Diagnoses: International Travel<30 Days: No Contact w/Intl Traveler<30days: No Known Affected Area: No History of Present Illness Ms. Gann is a 31-year-old female with a past history of gastric ulcers who presents with vomiting of 3 days duration. She describes the vomit as a yellowish color with mucus, no blood. Eating makes the vomiting worse and nothing makes the vomiting better. She has tried taking a warm bath and heartburn pills but nothing has helped. She has been unable to keep any food down her last meal was 3 days ago. She is unsure if she is has lost any weight. She also complains of excruciating pain in her stomach she describes it as a 10 out of 10 stabbing pain in the epigastric region of the abdomen with radiation to the back that started 3 days ago before the vomiting. The pain hit her suddenly. Eating makes it worse and nothing helps. She states that she was diagnosed with gastric ulcers 2 years ago when she came to the ED but she has not had a scope. The diagnosis was unofficial. She states that this vomiting and pain feels the same as when she had was diagnosed with ulcers. She has had no sick contacts, no recent travels, no OTC NSAID use. (Barbara Vasquez MD R1) Review of Systems Constitutional: COMPLAINS OF: Fatigue, Chills (started 3 days ago), Dizziness, DENIES: Fever, Night Sweats Eyes: DENIES: Blurred vision, Photosensitivity Ears, nose, mouth, throat: DENIES: Tinnitus, Nasal discharge Respiratory: DENIES: Cough, Shortness of breath Cardiovascular: COMPLAINS OF: Chest pain (mid sternum), Palpitations (racing heart), DENIES: Lower Extremity Edema Gastrointestinal: COMPLAINS OF: Diarrhea (same time, yellowish, watery, no blood or mucus), DENIES: Black stools, Bloody stools Genitourinary: DENIES: Abnormal vaginal bleeding, Urinary frequency, Urinary incontinence Musculoskeletal: DENIES: Muscle aches Integumentary: DENIES: Rash Neurologic: COMPLAINS OF: Headache (pounding, in the back of her head that wraps around her eyes, started 3 days ago), DENIES: Localized weakness, Paresthesias (Barbara Vasquez MD R1) Past Family Social History Past Medical History Gastric ulcers HTN- not on meds LMP: 8-15-17, lasts for 3-5 days, normal flow , 6yo Past Surgical History [place] teeth extraction- at 19yo Reported Medications Reported Meds & Active Scripts Active No Active Prescriptions or Reported Medications (Barbara Vasquez MD R1) Allergies: 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 Active Ordered Medications Current Medications Medications (Trade) Dose Ordered Sig/Aubree Route Start Time Stop Time Status Last Admin (NS Flush) 2 ml UNSCH PRN IV FLUSH 12/10/16 13:00 Metronidazole 100 ml @ 100 mls/hr ONCE ONCE IV 12/10/16 14:45 12/10/16 15:44 Family History Mother- Healthy Father- Healthy Siblings- Healthy Social History lives in an apartment in [facility] with her parents and son 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 SKIN: No rashes, ecchymoses or lesions. Cool and dry. HEAD: Atraumatic. Normocephalic. EYES: Pupils equal round and reactive. Extraocular motions intact. No scleral icterus. No injection or drainage. ENT: Nose without bleeding, purulent drainage or septal hematoma. Throat without erythema, tonsillar hypertrophy or exudate. Uvula midline. Airway patent. NECK: Trachea midline. No JVD or lymphadenopathy. Supple, nontender, no meningeal signs. CARDIOVASCULAR: Regular rate and rhythm without murmurs, gallops, or rubs. RESPIRATORY: Clear to auscultation. Breath sounds equal bilaterally. No wheezes , rales, or rhonchi. GASTROINTESTINAL: Abdomen soft, tender to palpation in epigastric region, nondistended. No hepato-splenomegaly, or palpable masses. No guarding. MUSCULOSKELETAL: Extremities without clubbing, cyanosis, or edema. No joint tenderness, effusion, or edema noted. No calf tenderness. NEUROLOGICAL: Awake and alert. Motor and sensory grossly within normal limits. Normal speech. Laboratory Laboratory Tests Test 12/10/16 13:08 White Blood Count 18.4 Red Blood Count 4.22 Hemoglobin 14.2 Hematocrit 42.9 Mean Corpuscular Volume 101.7 Mean Corpuscular Hemoglobin 33.7 Mean Corpuscular Hemoglobin Concent 33.1 Red Cell Distribution Width 14.1 Platelet Count 316 Mean Platelet Volume 7.5 Neutrophils (%) (Auto) 80.4 Lymphocytes (%) (Auto) 15.1 Monocytes (%) (Auto) 4.1 Eosinophils (%) (Auto) 0.2 Basophils (%) (Auto) 0.2 Neutrophils # (Auto) 14.8 Lymphocytes # (Auto) 2.8 Monocytes # (Auto) 0.8 Eosinophils # (Auto) 0.0 Basophils # (Auto) 0.0 CBC Comment DIFF FINAL Differential Comment Urine Color YELLOW Urine Turbidity HAZY Urine pH 6.5 Urine Specific [place] 1.021 Urine Protein 30 Urine Glucose (UA) NEG Urine Ketones 10 Urine Occult Blood SMALL Urine Nitrite NEG Urine Bilirubin NEG Urine Urobilinogen LESS THAN 2.0 Urine Leukocyte Esterase TRACE Urine RBC 7 Urine WBC 11 Urine Squamous Epithelial Cells 7 Urine Bacteria OCC Urine Hyaline Casts 1 Urine Mucus FEW Microscopic Urinalysis Comment CULTURE INDICATED Blood Urea Nitrogen 11 Creatinine 0.71 Random Glucose 108 Total Protein 8.4 Albumin 4.1 Calcium Level 8.7 Alkaline Phosphatase 68 Aspartate Amino Transf (AST/SGOT) 40 Alanine Aminotransferase (ALT/SGPT) 35 Total Bilirubin 0.3 Sodium Level 144 Potassium Level 3.0 Chloride Level 103 Carbon Dioxide Level 27.4 Anion Gap 14 Estimat Glomerular Filtration Rate 97 Lipase 124 Date/Time Source Procedure Growth Status 12/10/16 13:08 Urine Clean Catch Urine Culture Pending Received (Barbara Vasquez MD R1) Result Diagram: 12/10/16 1308 12/10/16 1308 Imaging Last Impressions Abdomen/Pelvis CT 12/10/16 1255 Signed Impressions: Service Date/Time: [place], December 10, 2016 13:41 - CONCLUSION: Very minimal nonspecific bowel wall thickening in the colon without fluid or other ancillary signs of acute colitis. Philippe Baker MD FACR (Babrara Vasquez MD R1) Caprini VTE Risk Assessment Caprini VTE Risk Assessment: No/Low Risk (score <= 1) Caprini Risk Assessment Model Point Value = 1 Point Value = 2 Point Value = 3 Point Value = 5 Age 41-60 Minor surgery BMI > 25 kg/m2 Swollen legs Varicose veins or History of unexplained or recurrent spontaneous Oral contraceptives or hormone replacement Sepsis (< 1 month) Serious lung disease, including pneumonia (< 1 month) Abnormal pulmonary function Acute myocardial infarction Congestive heart failure (< 1 month) History of inflammatory bowel disease Medical patient at bed rest Age 61-74 Arthroscopic surgery Major open surgery (> 45 min) Laparoscopic surgery (> 45 min) Malignancy Confined to bed (> 72 hours) Immobilizing plaster cast Central venous access Age >= 75 History of VTE Family history of VTE Factor V Leiden Prothrombin [id number] Lupus anticoagulant Anticardiolipin antibodies Elevated serum homocysteine Heparin-induced thrombocytopenia Other congenital or acquired thrombophilia Stroke (< 1 month) Elective arthroplasty Hip, pelvis, or leg fracture Acute spinal cord injury (< 1 month) Prophylaxis Regimen Total Risk Factor Score Risk Level Prophylaxis Regimen 0-1 Low Early ambulation 2 Moderate Order ONE of the following: *Sequential Compression Device (SCD) *Heparin 5000 units SQ BID 3-4 Higher Order ONE of the following medications: *Heparin 5000 units SQ TID *Enoxaparin/Lovenox 40 mg SQ daily (WT < 150 kg, CrCl > 30 mL/min) *Enoxaparin/Lovenox 30 mg SQ daily (WT < 150 kg, CrCl > 10-29 mL/min) *Enoxaparin/Lovenox 30 mg SQ BID (WT < 150 kg, CrCl > 30 mL/min) AND/OR *Sequential Compression Device (SCD) 5 or more Highest Order ONE of the following medications: *Heparin 5000 units SQ TID (Preferred with Epidurals) *Enoxaparin/Lovenox 40 mg SQ daily (WT < 150 kg, CrCl > 30 mL/min) *Enoxaparin/Lovenox 30 mg SQ daily (WT < 150 kg, CrCl > 10-29 mL/min) *Enoxaparin/Lovenox 30 mg SQ BID (WT < 150 kg, CrCl > 30 mL/min) AND *Sequential Compression Device (SCD) (Barbara Vasquez MD R1) Assessment and Plan Assessment and Plan Ms. Gann is a 31-year-old female with a past history of gastric ulcers who presents with vomiting of 3 days duration. She is being admitted to observation. Code Status Full code Discussed Condition With Dr. Zavala (Barbara Vasquez MD R1) Problem List: (1) Vomiting ICD Codes: R11.10 - Vomiting, unspecified Status: Acute Plan: Vomiting, diarrhea, and abdominal pain of 3 days' duration. Likely gastroenteritis vs. cannabis hyperemesis syndrome vs pancreatitis Leukocytosis present at 18.4. Lipase is normal at 124. Urine drug screen positive for cannabinoids. CT abdomen on 12/10 showed very minimal nonspecific bowel wall thickening in the colon without fluid or other ancillary signs of acute colitis -Admitted to observation -Ondansetron for nausea -Normal saline plus KCl 20 mEq IVF -Ciprofloxacin 400 mg IV every 12 hours -Metronidazole 500 mg IV every 8 hours -I's and O's -Clear liquid diet -Stool studies (2) UTI (urinary tract infection) ICD Codes: N39.0 - Urinary tract infection, site not specified Status: Acute Plan: Patient is asymptomatic. UA showed protein, ketones, trace leukocyte esterase, WBCs, RBCs, occasional bacteria -Will not treat at this time since patient is asymptomatic -Culture pending (3) FEN Status: Acute Plan: Fluids: Normal saline plus KCl 20 mEq at 120 mls/ hour Electrolytes: Hypokalemia, currently repleting with fluids Nutrition: Clear liquid diet DVT prophylaxis: (Barbara Vasquez MD R1) Problem Qualifiers (1) Vomiting: Qualified Codes: G43.A1 - Cyclical vomiting, intractable (2) UTI (urinary tract infection): Qualified Codes: N30.01 - Acute cystitis with hematuria Barbara Vasquez MD R1 Dec 10, 2016 15:53 Cahrlene Bateman MD Dec 11, 2016 13:09
--- NOTE | 2016-12-10 16:00 | PD ---
Data Data Last Documented VS Vital Signs Date Time Temp Pulse Resp B/P (MAP) Pulse Ox O2 Delivery O2 Flow Rate FiO2 12/10/16 12:59 99 Room Air 12/10/16 12:56 24 12/10/16 12:56 97.9 80 Orders Orders Complete Blood Count With Diff (12/10/16 12:55) Comprehensive Metabolic Panel (12/10/16 12:55) Lipase (12/10/16 12:55) Urinalysis - C+S If Indicated (12/10/16 12:55) Ct Abd/Pel W Iv Contrast(Rout) (12/10/16 12:55) Iv Access Insert/Monitor (12/10/16 12:55) Ecg Monitoring (12/10/16 12:55) Oximetry (12/10/16 12:55) Ondansetron Inj (Zofran Inj) (12/10/16 13:00) Sodium Chlor 0.9% 1000 Ml Inj (Ns 1000 M (12/10/16 12:55) Sodium Chloride 0.9% Flush (Ns Flush) (12/10/16 13:00) Ed Urine Pregnancytest Poc (12/10/16 12:55) Urine Culture (12/10/16 13:08) Prochlorperazine Inj (Compazine Inj) (12/10/16 13:45) Diphenhydramine Inj (Benadryl Inj) (12/10/16 13:45) Iohexol 350 Inj (Omnipaque 350 Inj) (12/10/16 13:57) Morphine Inj (Morphine Inj) (12/10/16 14:00) Ciprofloxacin 400 Mg Premix (Cipro 400 M (12/10/16 14:15) Metronidazole 500 Mg Inj (Flagyl 500 Mg (12/10/16 14:45) Admit Order (Ed Use Only) (12/10/16 15:18) Labs Laboratory Tests Test 12/10/16 13:08 White Blood Count 18.4 TH/MM3 Red Blood Count 4.22 MIL/MM3 Hemoglobin 14.2 GM/DL Hematocrit 42.9 % Mean Corpuscular Volume 101.7 FL Mean Corpuscular Hemoglobin 33.7 PG Mean Corpuscular Hemoglobin Concent 33.1 % Red Cell Distribution Width 14.1 % Platelet Count 316 TH/MM3 Mean Platelet Volume 7.5 FL Neutrophils (%) (Auto) 80.4 % Lymphocytes (%) (Auto) 15.1 % Monocytes (%) (Auto) 4.1 % Eosinophils (%) (Auto) 0.2 % Basophils (%) (Auto) 0.2 % Neutrophils # (Auto) 14.8 TH/MM3 Lymphocytes # (Auto) 2.8 TH/MM3 Monocytes # (Auto) 0.8 TH/MM3 Eosinophils # (Auto) 0.0 TH/MM3 Basophils # (Auto) 0.0 TH/MM3 CBC Comment DIFF FINAL Differential Comment Urine Color YELLOW Urine Turbidity HAZY Urine pH 6.5 Urine Specific [place] 1.021 Urine Protein 30 mg/dL Urine Glucose (UA) NEG mg/dL Urine Ketones 10 mg/dL Urine Occult Blood SMALL Urine Nitrite NEG Urine Bilirubin NEG Urine Urobilinogen LESS THAN 2.0 MG/DL Urine Leukocyte Esterase TRACE Urine RBC 7 /hpf Urine WBC 11 /hpf Urine Squamous Epithelial Cells 7 /hpf Urine Bacteria OCC /hpf Urine Hyaline Casts 1 /lpf Urine Mucus FEW /lpf Microscopic Urinalysis Comment CULTURE INDICATED Blood Urea Nitrogen 11 MG/DL Creatinine 0.71 MG/DL Random Glucose 108 MG/DL Total Protein 8.4 GM/DL Albumin 4.1 GM/DL Calcium Level 8.7 MG/DL Alkaline Phosphatase 68 U/L Aspartate Amino Transf (AST/SGOT) 40 U/L Alanine Aminotransferase (ALT/SGPT) 35 U/L Total Bilirubin 0.3 MG/DL Sodium Level 144 MEQ/L Potassium Level 3.0 MEQ/L Chloride Level 103 MEQ/L Carbon Dioxide Level 27.4 MEQ/L Anion Gap 14 MEQ/L Estimat Glomerular Filtration Rate 97 ML/MIN Lipase 124 U/L MDM Supervised Visit with CORRY: Yes Narrative Course The history, exam, and medical decision-making in the associated midlevel provider note were completed with my assistance. I reviewed and agree with the findings presented. I attest that I had a [id number] encounter with the patient on the same day, and personally performed and documented my assessment and findings in the medical record. *My assessment and Findings: This is a 31-year-old female who presents to the emergency department with nausea vomiting abdominal pain and diarrhea. She was retching continuously on arrival in the emergency department. Labs are obtained which demonstrated a leukocytosis of 18. She has a urinary tract infection. CT abdomen and pelvis was obtained which demonstrates colitis. I suspect her etiology of her symptoms is more GI in nature. Flagyl was added and patient will be admitted given her level of discomfort and intractable vomiting. Diagnosis Primary Impression: Vomiting Qualified Codes: G43.A1 - Cyclical vomiting, intractable Additional Impression: UTI (urinary tract infection) Qualified Codes: N30.01 - Acute cystitis with hematuria Scripts No Active Prescriptions or Reported Meds Condition: Stable Rachel Moreno MD Dec 10, 2016 16:00
[2016-12-10 17:34] LABS: MAGNESIUM 1.7 MG/DL (1.5-2.5)
[2016-12-10] MEDS: NS + KCL 20 MEQ INJ 1,000 ML IV SCH (18:00)
[2016-12-10 19:01] VITALS: BP 137/49; PULSE 68; RESP 18; TEMP 98.8; O2SAT 100
[2016-12-10] MEDS: SODIUM CHLORIDE 0.9% FLUSH 10 ML FLUSH IV FLUSH SCH (21:00)
[2016-12-10] MEDS: HEPARIN SODIUM - SQ 10,000 UNITS/ML VIAL SQ SCH (21:00)
[2016-12-10 21:22] LABS: AUTOMATED NEUTROPHIL # 15.6 TH/MM3 (1.8-7.7); BASOPHIL % 0.2 % (0.0-2.0); HEMATOCRIT 40.1 % (35.0-46.0); HEMO FLAGS DIFF FINAL; LYMPHOCYTE # 1.6 TH/MM3 (1.0-4.8); MEAN CELL VOLUME 102.8 FL (80.0-100.0); MEAN CORPUSCULAR HEMOGLOBIN 33.8 PG (27.0-34.0); MEAN CORPUSCULAR HGB CONC 32.9 % (32.0-36.0); NEUT % 86.8 % (16.0-70.0); PLATELET COUNT 277 TH/MM3 (150-450); RED CELL DISTRIBUTION WIDTH 13.8 % (11.6-17.2); WHITE BLOOD COUNT 17.9 TH/MM3 (4.0-11.0)
[2016-12-10 21:56] LABS: ALCOHOL LESS THAN 3 MG/DL (0-5)
[2016-12-10 23:12] VITALS: BP 135/86; PULSE 86; RESP 18; TEMP 98.1; O2SAT 98
[2016-12-10] MEDS ORDERED: IBUPROFEN SUSP 100 MG/5 ML 120 ML BOTTLE PO PRN (23:45)
[2016-12-11] VITALS (11 sets, daily range): BP systolic 135–202; BP diastolic 60–130; PULSE 61–85; RESP 18–20; TEMP 97.9–98.2; O2SAT 95–100
[2016-12-11] MEDS ORDERED: IBUPROFEN 600 MG TAB PO SCH
[2016-12-11] MEDS: KETOROLAC TROMETHAMINE 30 MG/ML (IVP) VIAL IV PUSH SCH ×3 (00:09→20:10)
[2016-12-11] MEDS: ONDANSETRON HCL 4 MG/2 ML VIAL IV PRN ×2 (00:12→18:41)
[2016-12-11] MEDS: metroNIDAZOLE 500 MG INJ 100 ML IV SCH ×3 (01:46→18:20)
[2016-12-11] MEDS: NS + KCL 20 MEQ INJ 1,000 ML IV SCH ×3 (02:20→18:15)
[2016-12-11] MEDS: CIPROFLOXACIN 400 MG PREMIX 200 ML IV SCH ×2 (04:16→16:52)
[2016-12-11 08:49] LABS: AUTOMATED NEUTROPHIL # 9.7 TH/MM3 (1.8-7.7); BASOPHIL % 0.3 % (0.0-2.0); EOSINOPHIL % 0.3 % (0.0-4.0); HEMATOCRIT 36.6 % (35.0-46.0); HEMO FLAGS DIFF FINAL; LYMPHOCYTE # 2.3 TH/MM3 (1.0-4.8); MEAN CELL VOLUME 102.4 FL (80.0-100.0); MEAN CORPUSCULAR HEMOGLOBIN 35.2 PG (27.0-34.0); MEAN CORPUSCULAR HGB CONC 34.4 % (32.0-36.0); MONO % 6.3 % (0.0-8.0); NEUT % 75.1 % (16.0-70.0); PLATELET COUNT 241 TH/MM3 (150-450); RED BLOOD COUNT 3.57 MIL/MM3 (4.00-5.30); WHITE BLOOD COUNT 12.9 TH/MM3 (4.0-11.0)
[2016-12-11 09:27] LABS: ALKALINE PHOSPHATASE 57 U/L (45-117); ALT (GPT) 26 U/L (10-53); ANION GAP 11 MEQ/L (5-15); AST (GOT) 22 U/L (15-37); BICARBONATE 26.2 MEQ/L (21.0-32.0); BLOOD UREA NITROGEN 6 MG/DL (7-18); CHLORIDE 102 MEQ/L (98-107); GLOMERULAR FILTRATION RATE 113 ML/MIN (>89); SODIUM (NA) 139 MEQ/L (136-145); TOTAL BILIRUBIN ADULT 0.5 MG/DL (0.2-1.0)
[2016-12-11 09:40] LABS: POTASSIUM 2.6 MEQ/L (3.5-5.1)
[2016-12-11] MEDS: HEPARIN SODIUM - SQ 10,000 UNITS/ML VIAL SQ SCH ×2 (10:04→21:05)
[2016-12-11] MEDS: SODIUM CHLORIDE 0.9% FLUSH 10 ML FLUSH IV FLUSH SCH ×2 (10:05→20:09)
[2016-12-11 10:26] LABS: MAGNESIUM 1.7 MG/DL (1.5-2.5)
[2016-12-11] MEDS: POTASSIUM CHLORIDE 10 MEQ CONTROLLED RELEASE TAB PO SCH ×2 (11:42→14:15)
--- NOTE | 2016-12-11 13:11 | HHI.FPPN ---
Subjective Subjective Patient seen and examined with the resident team. Case reviewed and discussed Please refer to resident H&P for further details regarding HPI, ROS, PMH, SurgHx , FH and SocHx In summary, patient is a 31yoF presenting with intractable emesis and abdominal pain and diarrhea. CT abd demonstrating colitis. This am, she is feeling better after IVF, K critical at 2.6 [facility] Objective Objective Last Impressions Abdomen/Pelvis CT 12/10/16 1255 Signed Impressions: Service Date/Time: Saturday, December 10, 2016 13:41 - CONCLUSION: Very minimal nonspecific bowel wall thickening in the colon without fluid or other ancillary signs of acute colitis. Philippe Baker MD FACR Laboratory Tests - Abnormals Test 12/10/16 20:40 12/10/16 20:45 12/11/16 07:30 White Blood Count 17.9 TH/MM3 12.9 TH/MM3 Red Blood Count 3.90 MIL/MM3 3.57 MIL/MM3 Mean Corpuscular Volume 102.8 FL 102.4 FL Neutrophils (%) (Auto) 86.8 % 75.1 % Neutrophils # (Auto) 15.6 TH/MM3 9.7 TH/MM3 Mean Corpuscular Hemoglobin 35.2 PG Blood Urea Nitrogen 6 MG/DL Albumin 3.0 GM/DL Calcium Level 7.9 MG/DL Potassium Level 2.6 MEQ/L Vital Signs 12/10/16 12/10/16 12/11/16 12/11/16 19:01 23:12 04:48 07:30 Temp 98.8 98.1 98.1 Pulse 68 86 83 Resp 18 18 18 B/P (MAP) 137/49 (78) 135/86 (102) 135/85 (102) Pulse Ox 100 98 98 O2 Delivery Room Air FiO2 21 12/11/16 12/11/16 08:45 12:39 Temp 97.9 97.9 Pulse 78 70 Resp 18 20 B/P (MAP) 138/60 (86) 161/100 (120) Pulse Ox 96 96 Physical exam GENERAL: wdwn female, resting in bed, nad SKIN: Warm and dry. no rashes. HEAD: Normocephalic. AT EYES: No scleral icterus. No injection or drainage. ENT: OP clear. MMM NECK: Supple, trachea midline. No JVD or lymphadenopathy. CARDIOVASCULAR: Regular rate and rhythm without murmurs, gallops, or rubs. RESPIRATORY: Breath sounds equal and clear bilaterally. No accessory muscle use. GASTROINTESTINAL: Abdomen soft, non-tender, nondistended. Hypoactive BS MUSCULOSKELETAL: No cyanosis, or edema. No calf tenderness BACK: Nontender without obvious deformity. No CVA tenderness. NEURO: Awake and alert. Normal speech. CN grossly intact. Assessment Assessment 31yoF with: Intractable emesis Abdominal pain Diarrhea Leukocytosis Bowel wall thickening on CT Cannabis use UTI Depression/Anxiety Critical hypokalemia PLAN PLAN IVF resuscitation Anti-emetics Replete electrolytes Serial BMP, mag Stool studies, c.diff Empiric antibiotic therapy Consider GES and GI consult for scope if no improvement Counseled on cannabis use Resume home meds as appropriate Await urine culture results Heparin Patient seen and examined. Case reviewed and discussed Agree with plan of care as discussed with me and documented in the resident note. Charlene Bateman MD Dec 11, 2016 13:11
--- NOTE | 2016-12-11 17:34 | EKG ---
Date Performed: 12/11/2016 Time Performed: 10:39:09 PTAGE: 31 years EKG: Sinus rhythm NONSPECIFIC T-WAVE ABNORMALITY BORDERLINE ECG NO PREVIOUS TRACING DOCTOR: Bereket Monaco Interpretating Date/Time 12/11/2016 17:33:38
[2016-12-11 18:56] LABS: C. DIFF EPI 027 PRESUMPTIVE NEGATIVE (NEGATIVE)
[2016-12-11] MEDS ORDERED: ENALAPRILAT 1.25 MG/ML VIAL IV PUSH PRN (19:45)
[2016-12-11] MEDS ORDERED: RANITIDINE HCL SYRUP 150 MG/10 ML UDC PO ONE (20:15)
[2016-12-11] MEDS: PANTOPRAZOLE SOD 40 MG DELAYED RELEASE TAB PO SCH (20:58)
[2016-12-11] MEDS: POTASSIUM CHLORIDE 25 MEQ EFFERVESCENT TAB PO SCH ×2 (20:59→23:45)
[2016-12-11] MEDS: LORazepam 2 MG/ML VIAL IV PUSH PRN (21:01)
[2016-12-11] MEDS: MULTIVITAMIN INJ 10 ML, THIAMINE INJ 100 MG, FOLIC ACID INJ 1 MG in SODIUM CHLOR 0.45% ... IV SCH (21:05)
[2016-12-11 21:16] LABS: BICARBONATE 27.1 MEQ/L (21.0-32.0)
[2016-12-11 21:18] LABS: POTASSIUM 2.9 MEQ/L (3.5-5.1)
[2016-12-11] MEDS ORDERED: ENALAPRILAT 1.25 MG/ML VIAL IV PUSH ONE (22:30)
[2016-12-11] MEDS ORDERED: cloNIDine HCL 0.1 MG TAB PO ONE (22:30)
[2016-12-11] MEDS ORDERED: MORPHINE SULFATE 4 MG/ML INJ IV PUSH ONE (22:30)
[2016-12-12] VITALS (15 sets, daily range): BP systolic 99–174; BP diastolic 58–115; PULSE 63–83; RESP 16–20; TEMP 97.6–98.8; O2SAT 95–100
[2016-12-12] MEDS ORDERED: ENALAPRILAT 1.25 MG/ML VIAL IV PRN
[2016-12-12] MEDS ORDERED: cloNIDine HCL 0.1 MG TAB PO PRN
[2016-12-12] MEDS ORDERED: MORPHINE SULFATE 4 MG/ML INJ IV PUSH PRN
[2016-12-12] MEDS: ACETAMINOPHEN 325 MG TAB PO PRN ×3 (01:20→15:26)
[2016-12-12] MEDS: metroNIDAZOLE 500 MG INJ 100 ML IV SCH ×3 (02:50→18:45)
[2016-12-12] MEDS: NS + KCL 20 MEQ INJ 1,000 ML IV SCH (03:32)
[2016-12-12] MEDS: CIPROFLOXACIN 400 MG PREMIX 200 ML IV SCH ×2 (03:47→15:29)
[2016-12-12] MEDS: POTASSIUM CHLORIDE 25 MEQ EFFERVESCENT TAB PO SCH ×4 (03:47→15:25)
[2016-12-12] MEDS: HEPARIN SODIUM - SQ 10,000 UNITS/ML VIAL SQ SCH ×2 (09:00→20:26)
--- NOTE | 2016-12-12 09:16 | EKG ---
Date Performed: 12/11/2016 Time Performed: 19:48:59 PTAGE: 31 years EKG: Sinus rhythm NORMAL ECG PREVIOUS TRACING : 12/11/2016 10.39 DOCTOR: Bereket Monaco Interpretating Date/Time 12/12/2016 09:14:36
[2016-12-12] MEDS: PANTOPRAZOLE SOD 40 MG DELAYED RELEASE TAB PO SCH (09:45)
[2016-12-12] MEDS: SODIUM CHLORIDE 0.9% FLUSH 10 ML FLUSH IV FLUSH SCH ×2 (09:46→20:29)
[2016-12-12] MEDS: LORazepam 2 MG/ML VIAL IV PUSH PRN ×2 (09:56→20:28)
[2016-12-12] MEDS ORDERED: INFLUENZA VIRUS VACCINE (QUADRIVALENT) 0.5 ML SYR IM ONE (10:00)
[2016-12-12] MEDS ORDERED: PNEUMOCOCCAL POLYVALENT INJ 25 MCG/0.5 ML SYR IM ONE (10:00)
[2016-12-12] MEDS: MULTIVITAMIN INJ 10 ML, THIAMINE INJ 100 MG, FOLIC ACID INJ 1 MG in SODIUM CHLOR 0.45% ... IV SCH (10:03)
[2016-12-12 12:51] LABS: HEMATOCRIT 36.1 % (35.0-46.0); MEAN CELL VOLUME 104.2 FL (80.0-100.0); MEAN CORPUSCULAR HEMOGLOBIN 35.2 PG (27.0-34.0); MEAN CORPUSCULAR HGB CONC 33.8 % (32.0-36.0); PLATELET COUNT 228 TH/MM3 (150-450); RED BLOOD COUNT 3.46 MIL/MM3 (4.00-5.30); RED CELL DISTRIBUTION WIDTH 13.9 % (11.6-17.2); REVIEW FLAG FINAL; WHITE BLOOD COUNT 7.9 TH/MM3 (4.0-11.0)
[2016-12-12 13:13] LABS: ANION GAP 8 MEQ/L (5-15); BICARBONATE 24.7 MEQ/L (21.0-32.0); BLOOD UREA NITROGEN 3 MG/DL (7-18); CHLORIDE 107 MEQ/L (98-107); GLOMERULAR FILTRATION RATE 105 ML/MIN (>89); POTASSIUM 3.5 MEQ/L (3.5-5.1); SODIUM (NA) 140 MEQ/L (136-145)
--- NOTE | 2016-12-12 13:48 | HHI.FPPN ---
Subjective Remarks Mrs. Gann states that she is doing much better this morning. Overnight she had several high blood pressures and also had chest pain. She states that the chest pain has resolved. She feels that it was due to a panic attack along with some heartburn symptoms. Her blood pressure is now normalized. She will like to began a therapy for anxiety. She was given Ativan by her previous PCP, but is amiable to taking a daily medication. She states that it has been months since she has last taken Ativan. No fevers or chills, no shortness of breath, no abdominal pain, no nausea or vomiting, no diarrhea or constipation. (Barbara Vasquez MD R1) Objective Vitals Vital Signs Date Time Temp Pulse Resp B/P (MAP) Pulse Ox O2 Delivery O2 Flow Rate FiO2 12/12/16 12:15 98.2 73 20 104/70 (81) 96 12/12/16 09:30 66 12/12/16 07:48 97.9 70 17 115/80 (92) 99 12/12/16 05:30 68 16 108/67 (81) 97 12/12/16 04:12 98.0 74 18 113/73 (86) 97 12/12/16 04:06 63 12/12/16 03:44 71 16 99/58 (72) 98 12/12/16 02:54 70 16 116/72 (87) 99 12/12/16 01:57 73 16 107/61 (76) 96 12/12/16 00:53 98.8 68 16 174/115 (134) 100 12/11/16 23:57 68 12/11/16 23:45 98.2 66 18 199/119 (145) 99 12/11/16 22:48 61 12/11/16 21:58 190/125 (146) 12/11/16 21:56 63 18 202/130 (154) 100 12/11/16 20:45 99 12/11/16 19:07 98.0 85 18 180/117 (138) 100 12/11/16 16:26 98.2 83 18 160/107 (124) 95 I/O 12/11/16 12/11/16 12/11/16 12/12/16 12/12/16 12/12/16 07:00 15:00 23:00 07:00 15:00 23:00 Intake Total 480 ml 980 ml 1325 ml 100 ml Output Total 1 ml Balance 480 ml 980 ml 1324 ml 100 ml Intake Oral 480 ml 1225 ml IV Total 980 ml 100 ml 100 ml Output Stool Total 1 ml # Voids 1 1 1 # Bowel Movements 0 (Barbara Vasquez MD R1) Result Diagram: 12/12/16 1156 12/12/16 1156 Imaging Last Impressions Abdomen/Pelvis CT 12/10/16 1255 Signed Impressions: Service Date/Time: Saturday, December 10, 2016 13:41 - CONCLUSION: Very minimal nonspecific bowel wall thickening in the colon without fluid or other ancillary signs of acute colitis. Philippe Baker MD FACR Objective Remarks GENERAL: Well-nourished, well-developed patient. SKIN: Warm and dry. HEAD: Normocephalic. EYES: No scleral icterus. No injection or drainage. CARDIOVASCULAR: Regular rate and rhythm without murmurs, gallops, or rubs. RESPIRATORY: Breath sounds equal bilaterally. No accessory muscle use. GASTROINTESTINAL: Abdomen soft, non-tender, nondistended. EXTREMITIES: No cyanosis, or edema. NEUROLOGICAL: Awake, alert, Non-focal. (Barbara Vasquez MD R1) A/P Assessment and Plan Ms. Gann is a 31-year-old female with a past history of gastric ulcers who presents with vomiting of 3 days duration. She is being admitted to observation. Discharge Planning Upon resolution of hypokalemia (Barbara Vasquez MD R1) Attending Attestation Patient seen and examined. Case reviewed and discussed Agree with plan of care as discussed with me and documented in the resident note. (Charlene Bateman MD) Problem List: (1) Vomiting ICD Codes: R11.10 - Vomiting, unspecified Status: Acute Plan: Vomiting, diarrhea, and abdominal pain of 3 days' duration. Likely gastroenteritis vs. cannabis hyperemesis syndrome vs pancreatitis Leukocytosis present at 18.4. Lipase is normal at 124. Urine drug screen positive for cannabinoids. CT abdomen on 12/10 showed very minimal nonspecific bowel wall thickening in the colon without fluid or other ancillary signs of acute colitis -GI consulted, appreciate recommendations -Ondansetron for nausea -Ciprofloxacin 400 mg IV every 12 hours -Metronidazole 500 mg IV every 8 hours -Protonix 40mg po qD -I's and O's -Regular diet -Stool studies pending (2) Hypokalemia ICD Codes: E87.6 - Hypokalemia Status: Acute Plan: Potassium level was 3.0 upon admission but decreased to 2.6 the next day. Is most likely due to her vomiting and diarrhea. Potassium to low normal today at 3.5. We'll continue to monitor to see if she keeps losing potassium. -DC IV fluids with potassium -DC K-Lyte 25 mEq every 4 hours -BMP in the AM (3) Anxiety ICD Codes: F41.9 - Anxiety disorder, unspecified Status: Acute Plan: Patient states that she has a long history of anxiety and panic attacks. -Started buspirone 10 mg every 12 hours (4) UTI (urinary tract infection) ICD Codes: N39.0 - Urinary tract infection, site not specified Status: Acute Plan: Patient is asymptomatic. UA showed protein, ketones, trace leukocyte esterase, WBCs, RBCs, occasional bacteria -Culture shows Escherichia coli susceptible to ciprofloxacin (5) FEN Status: Acute Plan: Fluids: Oral hydration Electrolytes: Monitor and replete as needed Nutrition: Regular diet DVT prophylaxis: Heparin 5000 units every 12 hrs Pain management: Tylenol (Barbara Vasquez MD R1) Problem Qualifiers (1) Vomiting: Qualified Codes: G43.A1 - Cyclical vomiting, intractable (2) UTI (urinary tract infection): Qualified Codes: N30.01 - Acute cystitis with hematuria Barbara Vasquez MD R1 Dec 12, 2016 13:48 Charlene Bateman MD Dec 13, 2016 16:15
[2016-12-12] MEDS ORDERED: CALCIUM CARBONATE 500 MG CHEWABLE TAB CHEW ONE (15:00)
--- NOTE | 2016-12-12 19:29 | PD.CONS ---
HPI History of Present Illness This is a 31 year old female patient who came to ED because of epigastric severe burning pain associated with vomiting. No hematemesis. She is improved now two days since presentation. she has been given Protonix daily 40mg. She is now eating a little food. The pain continues. She believes she has ulcers for the last 4 years becaue of her symptoms but she could not get an EGD. She does not know about H Pylori. She has never been treated. ROS: no headache, chest pain, SOB. No leg pains. No diarrhea. Otherwise complete ros is negative. PFSH Past Medical History Hypertension, does not take medication Past Surgical History None. 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 Medications Current Medications Medications (Trade) Dose Ordered Sig/Aubree Route Start Time Stop Time Status Last Admin (NS Flush) 2 ml UNSCH PRN IV FLUSH 12/10/16 16:45 (NS Flush) 2 ml BID IV FLUSH 12/10/16 21:00 12/12/16 09:46 (Zofran Inj) 4 mg Q6H PRN IV 12/10/16 16:45 12/11/16 18:41 (Heparin Inj) 5,000 units Q12HR SQ 12/10/16 21:00 12/11/16 21:05 Ciprofloxacin/ Dextrose 200 ml @ 200 mls/hr Q12H IV 12/11/16 04:00 12/12/16 15:29 Metronidazole 100 ml @ 100 mls/hr Q8H IV 12/11/16 02:00 12/12/16 18:45 Multivitamins 10 ml/Thiamine HCl 100 mg/Folic Acid 1 mg/Sodium Chloride 511.2 ml @ 125 mls/hr DAILY IV 12/11/16 20:00 12/12/16 10:03 (Protonix) 40 mg DAILY PO 12/11/16 20:15 12/12/16 09:45 (Ativan Inj) 0.5 mg Q6H PRN IV PUSH 12/11/16 20:15 12/12/16 09:56 (Vasotec Inj) 1.25 mg Q6H PRN IV 12/12/16 00:00 12/12/16 01:10 (Catapres) 0.1 mg Q6H PRN PO 12/12/16 00:00 12/12/16 00:07 (Morphine Inj) 2 mg Q3H PRN IV PUSH 12/12/16 00:00 (Tylenol) 650 mg Q4H PRN PO 12/12/16 00:00 12/12/16 15:26 (Buspar) 10 mg Q12HR PO 12/12/16 21:00 Family History Positive for gastric cancer and colon cancer in extended family Social History Smokes cigarettes. Drinks alcohol. Smokes pot. No injection drugs or cocaine GI Exam Vitals I&O Vital Signs Date Time Temp Pulse Resp B/P (MAP) Pulse Ox O2 Delivery O2 Flow Rate FiO2 12/12/16 16:58 97.9 83 20 129/88 (102) 95 12/12/16 15:11 72 12/12/16 12:15 98.2 73 20 104/70 (81) 96 12/12/16 09:30 66 12/12/16 07:48 97.9 70 17 115/80 (92) 99 12/12/16 05:30 68 16 108/67 (81) 97 12/12/16 04:12 98.0 74 18 113/73 (86) 97 12/12/16 04:06 63 12/12/16 03:44 71 16 99/58 (72) 98 12/12/16 02:54 70 16 116/72 (87) 99 12/12/16 01:57 73 16 107/61 (76) 96 12/12/16 00:53 98.8 68 16 174/115 (134) 100 12/11/16 23:57 68 12/11/16 23:45 98.2 66 18 199/119 (145) 99 12/11/16 22:48 61 12/11/16 21:58 190/125 (146) 12/11/16 21:56 63 18 202/130 (154) 100 12/11/16 20:45 99 I/O 12/11/16 12/11/16 12/11/16 12/12/16 12/12/16 12/12/16 07:00 15:00 23:00 07:00 15:00 23:00 Intake Total 480 ml 980 ml 1325 ml 600 ml 200 ml Output Total 1 ml Balance 480 ml 980 ml 1324 ml 600 ml 200 ml Intake Oral 480 ml 1225 ml IV Total 980 ml 100 ml 600 ml 200 ml Output Stool Total 1 ml # Voids 1 1 1 # Bowel Movements 0 Laboratory Test 12/11/16 20:40 12/12/16 11:56 Blood Urea Nitrogen 4 MG/DL 3 MG/DL Creatinine 0.75 MG/DL 0.66 MG/DL Random Glucose 117 MG/DL 103 MG/DL Calcium Level 8.2 MG/DL 8.1 MG/DL Sodium Level 140 MEQ/L 140 MEQ/L Potassium Level 2.9 MEQ/L 3.5 MEQ/L Chloride Level 105 MEQ/L 107 MEQ/L Carbon Dioxide Level 27.1 MEQ/L 24.7 MEQ/L Anion Gap 8 MEQ/L 8 MEQ/L Estimat Glomerular Filtration Rate 91 ML/MIN 105 ML/MIN White Blood Count 7.9 TH/MM3 Red Blood Count 3.46 MIL/MM3 Hemoglobin 12.2 GM/DL Hematocrit 36.1 % Mean Corpuscular Volume 104.2 FL Mean Corpuscular Hemoglobin 35.2 PG Mean Corpuscular Hemoglobin Concent 33.8 % Red Cell Distribution Width 13.9 % Platelet Count 228 TH/MM3 Mean Platelet Volume 7.9 FL Vitamin B12 Level 516 PG/ML Folate GREATER THAN 20.0 NG/ML Date/Time Source Procedure Growth Status 12/11/16 15:56 Stool Stool Cryptosporidium Exam Pending Resulted 12/11/16 15:56 Stool Stool Stool Pus (EUGENIA) - Final NO WBC'S SEEN Resulted 12/11/16 15:56 Stool Stool Giardia Antigen (EUGENIA) Pending Resulted 12/10/16 13:08 Urine Clean Catch Urine Culture - Final Escherichia Coli Complete Physical Examination HEENT: Pupils round and reactive to light; normocephalic; atraumatic; no jaundice. Throat is clear. NECK: Neck is supple, no JVD, no lymphadenopathy. CHEST: Chest is clear to auscultation and percussion. CARDIAC: Regular rate and rhythm with no murmur gallop or rubs. ABDOMEN: Soft, nondistended, nontender; no hepatosplenomegaly; bowel sounds are present in all four quadrants. EXTREMITIES: No clubbing, cyanosis, or edema. SKIN: Normal; no rash; no jaundice. HAIRSPRING ADJUSTER: No focal deficits; alert and oriented times three. Assessment and Plan Plan Impression: - Epigastric pain assiciated with vomiting. - Rule out PUD and H Pylori Plan: EGD tomorrow. Jeyson Keith MD Dec 12, 2016 19:29
[2016-12-12] MEDS: busPIRone HCL 10 MG TAB PO SCH (20:26)
--- NOTE | 2016-12-12 20:42 | RADRPT ---
EXAM DATE/TIME: 12/12/2016 19:59 [facility] COMPARISON: CT ABDOMEN & PELVIS W CONTRAST, December 10, 2016, 13:41. INDICATIONS : Abdominal pain and nausea. MEDICAL HISTORY : Hypertension. Asthma. Herniated disc. Ulcers. Diarrhea. Palpitations. Anxiety. SURGICAL HISTORY : None. ENCOUNTER: Initial ACUITY: 2 days PAIN SCORE: 5/10 LOCATION: Abdomen. MEASUREMENTS: LIVER: 17.3 cm length COMMON DUCT: 3 mm RIGHT KIDNEY: 10.9 x 4.5 x 5.4 cm LEFT KIDNEY: 10.3 x 4.4 x 4.7 cm SPLEEN: 10.7 cm length AORTA: 2.0cm maximal FINDINGS: LIVER: The liver is enlarged and mildly increased in echogenicity with no focal mass or ductal dilatation. T here is no ascites. COMMON DUCT: No intraluminal mass or stone visualized. GALLBLADDER: Contains no stones, demonstrates no wall thickening or pericholecystic fluid. PANCREAS: The visualized portions are within normal limits. RIGHT KIDNEY: No hydronephrosis, stone or mass. LEFT KIDNEY: No hydronephrosis, stone or mass. SPLEEN: No focal lesion. AORTA: Non aneurysmal. IVC: Within normal limits. CONCLUSION: 1. Unremarkable gallbladder with no evidence of cholelithiasis. 2. Comment liver with findings most characteristic of fatty infiltration. Sean Bravo MD on December 12, 2016 at 20:39 Board Certified Radiologist. This report was verified electronically.
[2016-12-13] VITALS (7 sets, daily range): BP systolic 113–144; BP diastolic 59–110; PULSE 72–96; RESP 16–20; TEMP 98.1–98.7; O2SAT 99–100
[2016-12-13] MEDS: metroNIDAZOLE 500 MG INJ 100 ML IV SCH ×2 (02:05→10:04)
[2016-12-13] MEDS: ACETAMINOPHEN 325 MG TAB PO PRN (03:36)
[2016-12-13] MEDS: CIPROFLOXACIN 400 MG PREMIX 200 ML IV SCH (03:36)
[2016-12-13 07:35] LABS: HEMATOCRIT 35.8 % (35.0-46.0); MEAN CELL VOLUME 104.1 FL (80.0-100.0); MEAN CORPUSCULAR HEMOGLOBIN 34.5 PG (27.0-34.0); MEAN CORPUSCULAR HGB CONC 33.1 % (32.0-36.0); PLATELET COUNT 244 TH/MM3 (150-450); RED BLOOD COUNT 3.44 MIL/MM3 (4.00-5.30); RED CELL DISTRIBUTION WIDTH 13.5 % (11.6-17.2); REVIEW FLAG FINAL; WHITE BLOOD COUNT 8.9 TH/MM3 (4.0-11.0)
[2016-12-13 07:56] LABS: BICARBONATE 25.2 MEQ/L (21.0-32.0); POTASSIUM 3.5 MEQ/L (3.5-5.1)
[2016-12-13] MEDS: SODIUM CHLORIDE 0.9% FLUSH 10 ML FLUSH IV FLUSH SCH (09:19)
[2016-12-13] MEDS: PANTOPRAZOLE SOD 40 MG DELAYED RELEASE TAB PO SCH ×2 (09:19→12:03)
[2016-12-13] MEDS: busPIRone HCL 10 MG TAB PO SCH ×2 (09:19→12:03)
[2016-12-13] MEDS: HEPARIN SODIUM - SQ 10,000 UNITS/ML VIAL SQ SCH (09:20)
[2016-12-13] MEDS: MULTIVITAMIN INJ 10 ML, THIAMINE INJ 100 MG, FOLIC ACID INJ 1 MG in SODIUM CHLOR 0.45% ... IV SCH (09:20)
[2016-12-13] MEDS: LORazepam 2 MG/ML VIAL IV PUSH PRN (10:00)
--- NOTE | 2016-12-13 10:45 | HHI.GIFU ---
Subjective Remarks EGD today showed hiatal hernia and mild gastritis. Biopsy taken of antrum for histology. No ulcers or erosions. No polyps or tumor. Objective Vitals I&O Vital Signs Date Time Temp Pulse Resp B/P (MAP) Pulse Ox O2 Delivery O2 Flow Rate FiO2 12/13/16 07:40 98.1 72 16 144/110 (121) 100 12/13/16 04:02 98.5 78 18 136/89 (105) 99 12/13/16 04:00 72 12/13/16 00:00 96 12/12/16 23:30 97.6 74 18 137/93 (108) 100 12/12/16 20:00 72 12/12/16 19:35 97.8 77 18 142/91 (108) 100 12/12/16 16:58 97.9 83 20 129/88 (102) 95 12/12/16 15:11 72 12/12/16 12:15 98.2 73 20 104/70 (81) 96 I/O 12/12/16 12/12/16 12/12/16 12/13/16 12/13/16 12/13/16 07:00 15:00 23:00 07:00 15:00 23:00 Intake Total 600 ml 660 ml Balance 600 ml 660 ml Intake Oral 460 ml IV Total 600 ml 200 ml # Voids 1 2 Laboratory Laboratory Tests Test 12/12/16 11:56 12/13/16 06:30 White Blood Count 7.9 8.9 Red Blood Count 3.46 3.44 Hemoglobin 12.2 11.9 Hematocrit 36.1 35.8 Mean Corpuscular Volume 104.2 104.1 Mean Corpuscular Hemoglobin 35.2 34.5 Mean Corpuscular Hemoglobin Concent 33.8 33.1 Red Cell Distribution Width 13.9 13.5 Platelet Count 228 244 Mean Platelet Volume 7.9 7.7 Blood Urea Nitrogen 3 7 Creatinine 0.66 0.60 Random Glucose 103 89 Calcium Level 8.1 8.1 Sodium Level 140 138 Potassium Level 3.5 3.5 Chloride Level 107 105 Carbon Dioxide Level 24.7 25.2 Anion Gap 8 8 Estimat Glomerular Filtration Rate 105 117 Vitamin B12 Level 516 Folate GREATER THAN 20.0 Date/Time Source Procedure Growth Status 12/11/16 15:56 Stool Stool Cryptosporidium Exam Pending Resulted 12/11/16 15:56 Stool Stool Stool Pus (EUGENIA) - Final NO WBC'S SEEN Resulted 12/11/16 15:56 Stool Stool Giardia Antigen (EUGENIA) Pending Resulted 12/10/16 13:08 Urine Clean Catch Urine Culture - Final Escherichia Coli Complete Physical Exam HEENT: Pupils round and reactive to light; normocephalic; atraumatic; no jaundice. Throat is clear. NECK: Neck is supple, no JVD, no lymphadenopathy. CHEST: Chest is clear to auscultation and percussion. CARDIAC: Regular rate and rhythm with no murmur gallop or rubs. ABDOMEN: Soft, nondistended, nontender; no hepatosplenomegaly; bowel sounds are present in all four quadrants. EXTREMITIES: No clubbing, cyanosis, or edema. SKIN: Normal; no rash; no jaundice. STILL OPERATOR BATCH OR CONTINUOUS: No focal deficits; alert and oriented times three. Assessment and Plan Plan Impression: - Epigastric pain assiciated with vomiting. - Rule out PUD and H Pylori - EGD with biopsy today showed no ulcers or polyps. Hiatal hernia and mild gastritis present. Biopsy taken for H Pylori Plan: Ok for discharge today . Jeyson Keith MD Dec 13, 2016 10:45
[2016-12-13] MEDS ORDERED: *morphine SULFATE 8 MG/ML PERIprocedure ONLY ONE (10:50)
[2016-12-13] MEDS ORDERED: *LABETALOL HCL 100 MG/20 ML VIAL PERIprocedural Use ONLY ONE (10:55)
[2016-12-13] MEDS ORDERED: DO NOT ADM ANY ANTICOAGULANT DRUGS PRN (11:00)
--- NOTE | 2016-12-13 11:00 | HHI.FPPN ---
Subjective Remarks Except for some hypertension with blood pressures ranging from 130s to 150s over 90s to 110s, patient has remained afebrile vital signs stable. Talked to patient in PACU. Patient feels well after EGD, just a little woozy. She still complains of reflux with eating. 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 This diagnosis was explained to patient. She feels that food gets caught in epigastric area and subsequent worsening of her reflux symptoms. She is worried about her blood pressure and is asking for antihypertensive medication upon discharge. Plan on f/u with GI and will f/u H. pylori. She plans to stop soda, alcohol. Reviewed No NSAIDs, Tylenol ok. She is in the habit of going all day without eating until dinner. Recommended smaller, more frequent meals. (Sean Ho MD R2) Objective Vitals Vital Signs Date Time Temp Pulse Resp B/P (MAP) Pulse Ox O2 Delivery O2 Flow Rate FiO2 12/13/16 07:40 98.1 72 16 144/110 (121) 100 12/13/16 04:02 98.5 78 18 136/89 (105) 99 12/13/16 04:00 72 12/13/16 00:00 96 12/12/16 23:30 97.6 74 18 137/93 (108) 100 12/12/16 20:00 72 12/12/16 19:35 97.8 77 18 142/91 (108) 100 12/12/16 16:58 97.9 83 20 129/88 (102) 95 12/12/16 15:11 72 12/12/16 12:15 98.2 73 20 104/70 (81) 96 I/O 12/12/16 12/12/16 12/12/16 12/13/16 12/13/16 12/13/16 07:00 15:00 23:00 07:00 15:00 23:00 Intake Total 600 ml 660 ml Balance 600 ml 660 ml Intake Oral 460 ml IV Total 600 ml 200 ml # Voids 1 2 (Sean Ho MD R2) Result Diagram: 12/13/16 0630 12/13/16 0630 Imaging Last Impressions Abdomen Ultrasound 12/12/16 0000 Signed Impressions: Service Date/Time: Monday, December 12, 2016 19:59 - CONCLUSION: 1. Unremarkable gallbladder with no evidence of cholelithiasis. 2. Comment liver with findings most characteristic of fatty infiltration. Sean Bravo MD Abdomen/Pelvis CT 12/10/16 1255 Signed Impressions: Service Date/Time: Saturday, December 10, 2016 13:41 - CONCLUSION: Very minimal nonspecific bowel wall thickening in the colon without fluid or other ancillary signs of acute colitis. Philippe Baker MD FACR Objective Remarks GENERAL: Well-nourished, well-developed female patient. SKIN: Warm and dry. HEAD: Normocephalic. EYES: No scleral icterus. No injection or drainage. CARDIOVASCULAR: Regular rate and rhythm without murmurs, gallops, or rubs. RESPIRATORY: Breath sounds equal bilaterally. No accessory muscle use. GASTROINTESTINAL: +BS. Abdomen soft, non-tender, nondistended. EXTREMITIES: No cyanosis, or edema. NEUROLOGICAL: Awake, alert, Non-focal. Procedures s/p EGD today (Sean Ho MD R2) A/P Assessment and Plan Ms. Gann is a 31-year-old female with a past history of gastric ulcers who presents with vomiting of 3 days duration. She is being admitted to observation. Plan to discharge after EGD and last dose of Cipro today. Discharge Planning Plan to discharge after EGD and last dose of Cipro today. (Sean Ho MD R2) Attending Attestation Patient seen and examined with the resident team in the PACU after EGD. Case reviewed and discussed Agree with plan of care as discussed with me and documented in the resident note. Discharge planning. Spoke with GI, Sagar Mccormick will clear for discharge Counseled on drug use and importance of follow-up (Charlene Bateman MD) Problem List: (1) Vomiting ICD Codes: R11.10 - Vomiting, unspecified Status: Acute Plan: Vomiting, diarrhea, and abdominal pain of 3 days' duration. Likely PUD vs. severe reflux vs. gastroenteritis vs. cannabis hyperemesis syndrome vs pancreatitis vs. H. pylori Leukocytosis present at 18.4. Lipase is normal at 124. Urine drug screen positive for cannabinoids. CT abdomen on 12/10 showed very minimal nonspecific bowel wall thickening in the colon without fluid or other ancillary signs of acute colitis -GI consulted, appreciate recommendations and intervention; plan on d/c after EGD today -Ondansetron for nausea -Ciprofloxacin 400 mg IV every 12 hours -Metronidazole 500 mg IV every 8 hours -Protonix 40mg po qD; plan to d/c on PPI -I's and O's -Regular diet -Stool studies negative; C diff negative. -Urine culture positive for pansensitive Escherichia coli. Cipro should cover. Patient on day 3 of antibiotics. (2) Hypokalemia ICD Codes: E87.6 - Hypokalemia Status: Acute Plan: Potassium level was 3.0 upon admission but decreased to 2.6 the next day. Is most likely due to her vomiting and diarrhea. Potassium low normal today at 3.5. Stable. - after d/c, f/u BMP in one week (3) Anxiety ICD Codes: F41.9 - Anxiety disorder, unspecified Status: Acute Plan: Patient states that she has a long history of anxiety and panic attacks. -Started buspirone 10 mg every 12 hours -d/c with this medication (4) UTI (urinary tract infection) ICD Codes: N39.0 - Urinary tract infection, site not specified Status: Acute Plan: Patient is asymptomatic. UA showed protein, ketones, trace leukocyte esterase, WBCs, RBCs, occasional bacteria -Culture shows Escherichia coli susceptible to ciprofloxacin (12/11-12/13)- today's day 3 of antibiotics, which should treat uncomplicated UTI. (5) HTN (hypertension) ICD Codes: I10 - Essential (primary) hypertension Plan: Patient with a self-reported history of hypertension has had some hypertension with blood pressures ranging from 130s to 150s over 90s to 110s, per night. She is worried about her blood pressure and is asking for antihypertensive medication upon discharge. - Lisinopril 20 mg by mouth daily - Follow-up BMP in 1 week (6) FEN Status: Acute Plan: Fluids: Oral hydration Electrolytes: Monitor and replete as needed Nutrition: Regular diet DVT prophylaxis: Heparin 5000 units every 12 hrs Pain management: Tylenol (Sean Ho MD R2) Problem Qualifiers (1) Vomiting: Qualified Codes: G43.A1 - Cyclical vomiting, intractable (2) UTI (urinary tract infection): Qualified Codes: N30.01 - Acute cystitis with hematuria Sean Ho MD R2 Dec 13, 2016 11:00 Charlene Bateman MD Dec 13, 2016 16:15
[2016-12-13] MEDS ORDERED: PROPOFOL 200 MG/20 ML AMP IV ONE (12:00)
[2016-12-13] MEDS ORDERED: LISINOPRIL 20 MG TAB PO ONE (12:00)
[2016-12-13] MEDS ORDERED: LISI-515 PO (13:49)
[2016-12-13] MEDS ORDERED: BUSP10TA PO (13:50)
[2016-12-13] MEDS ORDERED: PANT40TA3 PO (13:50)
--- NOTE | 2016-12-13 13:54 | HHI.DCPOC ---
Discharge Care Plan Diagnosis: (1) Hypokalemia (2) HTN (hypertension) (3) Anxiety (4) Vomiting (5) UTI (urinary tract infection) Goals to Promote Your Health * To prevent worsening of your condition and complications, please take medications as prescribed and follow up with gastroenterology. * To maintain your health at the optimal level, please establish with a primary care doctor. Directions to Meet Your Goals Take your medications as prescribed Follow your dietary instruction Follow activity as directed Keep your appointments as scheduled Take your immunizations and boosters as scheduled If your symptoms worsen call your PCP, if no PCP go to Urgent Care Center or Emergency Room Smoking is Dangerous to Your Health. Avoid second hand smoke Call the 24-hour hour crisis hotline for domestic abuse at Sean Ho MD R2 Dec 13, 2016 13:54 Charlene Bateman MD Dec 13, 2016 16:14
--- NOTE | 2016-12-13 14:02 | HHI.DS ---
Sean Ho MD R2 12/13/16 1402: Discharge Summary Admission Date Dec 10, 2016 at 15:19 Discharge Date: Dec 13, 2016 Admitting Diagnosis intractable vomiting/UTI (1) Vomiting Diagnosis: Principal Plan: Vomiting, diarrhea, and abdominal pain of 3 days' duration. Likely PUD vs. severe reflux vs. gastroenteritis vs. cannabis hyperemesis syndrome vs pancreatitis vs. H. pylori Leukocytosis present at 18.4. Lipase is normal at 124. Urine drug screen positive for cannabinoids. CT abdomen on 12/10 showed very minimal nonspecific bowel wall thickening in the colon without fluid or other ancillary signs of acute colitis -GI consulted, appreciate recommendations and intervention; plan on d/c after EGD today -Ondansetron for nausea -Ciprofloxacin 400 mg IV every 12 hours -Metronidazole 500 mg IV every 8 hours -Protonix 40mg po qD; plan to d/c on PPI -I's and O's -Regular diet -Stool studies negative; C diff negative. -Urine culture positive for pansensitive Escherichia coli. Cipro should cover. Patient on day 3 of antibiotics. ICD Codes: R11.10 - Vomiting, unspecified Status: Acute (2) Hypokalemia Diagnosis: Principal Plan: Potassium level was 3.0 upon admission but decreased to 2.6 the next day. Is most likely due to her vomiting and diarrhea. Potassium low normal today at 3.5. Stable. - after d/c, f/u BMP in one week ICD Codes: E87.6 - Hypokalemia Status: Acute (3) Anxiety Diagnosis: Principal Plan: Patient states that she has a long history of anxiety and panic attacks. -Started buspirone 10 mg every 12 hours -d/c with this medication ICD Codes: F41.9 - Anxiety disorder, unspecified Status: Acute (4) UTI (urinary tract infection) Diagnosis: Principal Plan: Patient is asymptomatic. UA showed protein, ketones, trace leukocyte esterase, WBCs, RBCs, occasional bacteria -Culture shows Escherichia coli susceptible to ciprofloxacin (12/11-12/13)- today's day 3 of antibiotics, which should treat uncomplicated UTI. ICD Codes: N39.0 - Urinary tract infection, site not specified Status: Acute (5) HTN (hypertension) Diagnosis: Secondary Plan: Patient with a self-reported history of hypertension has had some hypertension with blood pressures ranging from 130s to 150s over 90s to 110s, per night. She is worried about her blood pressure and is asking for antihypertensive medication upon discharge. - Lisinopril 20 mg by mouth daily - Follow-up BMP in 1 week ICD Codes: I10 - Essential (primary) hypertension (6) FEN Diagnosis: Secondary Plan: Fluids: Oral hydration Electrolytes: Monitor and replete as needed Nutrition: Regular diet DVT prophylaxis: Heparin 5000 units every 12 hrs Pain management: Tylenol Status: Acute Procedures s/p EGD today. EGD today showed hiatal hernia and mild gastritis. Biopsy taken of antrum for histology. No ulcers or erosions. No polyps or tumor. Brief History Ms. Gann is a 31-year-old female with a past history of gastric ulcers who presents with vomiting of 3 days duration. She describes the vomit as a yellowish color with mucus, no blood. Eating makes the vomiting worse and nothing makes the vomiting better. She has tried taking a warm bath and heartburn pills but nothing has helped. She has been unable to keep any food down her last meal was 3 days ago. She is unsure if she is has lost any weight. She also complains of excruciating pain in her stomach she describes it as a 10 out of 10 stabbing pain in the epigastric region of the abdomen with radiation to the back that started 3 days ago before the vomiting. The pain hit her suddenly. Eating makes it worse and nothing helps. She states that she was diagnosed with gastric ulcers 2 years ago when she came to the ED but she has not had a scope. The diagnosis was unofficial. She states that this vomiting and pain feels the same as when she had was diagnosed with ulcers. She has had no sick contacts, no recent travels, no OTC NSAID use. CBC/BMP: 12/13/16 0630 12/13/16 0630 Significant Findings Laboratory Tests Test 12/10/16 20:40 12/10/16 20:45 12/11/16 07:30 12/11/16 15:06 White Blood Count 17.9 TH/MM3 (4.0-11.0) 12.9 TH/MM3 (4.0-11.0) Red Blood Count 3.90 MIL/MM3 (4.00-5.30) 3.57 MIL/MM3 (4.00-5.30) Mean Corpuscular Volume 102.8 FL (80.0-100.0) 102.4 FL (80.0-100.0) Neutrophils (%) (Auto) 86.8 % (16.0-70.0) 75.1 % (16.0-70.0) Neutrophils # (Auto) 15.6 TH/MM3 (1.8-7.7) 9.7 TH/MM3 (1.8-7.7) Mean Corpuscular Hemoglobin 35.2 PG (27.0-34.0) Blood Urea Nitrogen 6 MG/DL (7-18) Albumin 3.0 GM/DL (3.4-5.0) Calcium Level 7.9 MG/DL (8.5-10.1) Potassium Level 2.6 MEQ/L (3.5-5.1) 2.9 MEQ/L (3.5-5.1) Test 12/11/16 15:56 12/11/16 20:40 12/12/16 11:56 12/13/16 06:30 Blood Urea Nitrogen 4 MG/DL (7-18) 3 MG/DL (7-18) Random Glucose 117 MG/DL (74-106) Calcium Level 8.2 MG/DL (8.5-10.1) 8.1 MG/DL (8.5-10.1) 8.1 MG/DL (8.5-10.1) Potassium Level 2.9 MEQ/L (3.5-5.1) Red Blood Count 3.46 MIL/MM3 (4.00-5.30) 3.44 MIL/MM3 (4.00-5.30) Mean Corpuscular Volume 104.2 FL (80.0-100.0) 104.1 FL (80.0-100.0) Mean Corpuscular Hemoglobin 35.2 PG (27.0-34.0) 34.5 PG (27.0-34.0) Folate GREATER THAN 20.0 NG/ML PE at Discharge GENERAL: Well-nourished, well-developed female patient. SKIN: Warm and dry. HEAD: Normocephalic. EYES: No scleral icterus. No injection or drainage. CARDIOVASCULAR: Regular rate and rhythm without murmurs, gallops, or rubs. RESPIRATORY: Breath sounds equal bilaterally. No accessory muscle use. GASTROINTESTINAL: +BS. Abdomen soft, non-tender, nondistended. EXTREMITIES: No cyanosis, or edema. NEUROLOGICAL: Awake, alert, Non-focal. Hospital Course Patient is a 31-year-old female with no primary care and a reported history of GI ulcers who presented with vomiting and epigastric pain. She was treated with Zofran, Cipro, Flagyl, Protonix, GI consult. Stool studies negative, C. difficile negative. Urine culture positive for pansensitive Escherichia coli, which would be treated by us the Cipro. Patient received 3 days of IV antibiotics prior to discharge. Patient also found to be hypokalemic potassium level as low as 2.6. Gave patient potassium and potassium came up appropriately to 3.5. Patient also with reported history of hypertension, found to be hypertensive during her stay here. Discharged on lisinopril. Follow-up BMP within 1 week after discharge. Patient also with history of anxiety. Started patient on BuSpar 10 mg every 12 and discharged with this medication. GI consult: EGD today showed hiatal hernia and mild gastritis. Biopsy taken of antrum for histology. No ulcers or erosions. No polyps or tumor. - Epigastric pain associated with vomiting. - Rule out PUD and H Pylori - EGD with biopsy today showed no ulcers or polyps. Hiatal hernia and mild gastritis present. Biopsy taken for H Pylori Pt Condition on Discharge: Good Discharge Disposition: Discharge Home Discharge Instructions DIET: Follow Instructions for: As Tolerated, No Restrictions Activities you can perform: Regular-No Restrictions Follow up Referrals: Gastroenterology - 1 Month with Jeyson Keith MD PCP Follow-up - 1 Week New Orders: BASIC METABOLIC PROF - 1 Week New Medications: Lisinopril (Lisinopril) 20 Mg Tab 20 MG PO DAILY, #30 TAB 1 Refill Lorazepam (Lorazepam) 0.5 Mg Tab 0.5 MG PO Q6H PRN for ANXIETY, #20 TAB 0 Refills Buspirone (Buspirone) 10 Mg Tab 10 MG PO Q12HR, #60 TAB 1 Refill Pantoprazole (Pantoprazole) 40 Mg Tab 40 MG PO DAILY, #30 TAB Charlene Bateman MD 12/13/16 1614: Discharge Summary CBC/BMP: 12/13/16 0630 12/13/16 0630 Discharge Instructions Follow up Referrals: Gastroenterology - 1 Month with Jeyson Keith MD PCP Follow-up - 1 Week New Orders: BASIC METABOLIC PROF - 1 Week New Medications: Lisinopril (Lisinopril) 20 Mg Tab 20 MG PO DAILY, #30 TAB 1 Refill Lorazepam (Lorazepam) 0.5 Mg Tab 0.5 MG PO Q6H PRN for ANXIETY, #20 TAB 0 Refills Buspirone (Buspirone) 10 Mg Tab 10 MG PO Q12HR, #60 TAB 1 Refill Pantoprazole (Pantoprazole) 40 Mg Tab 40 MG PO DAILY, #30 TAB Sean Ho MD R2 Dec 13, 2016 14:02 Charlene Bateman MD Dec 13, 2016 16:14
[2016-12-13] MEDS ORDERED: LORA-373 PO (14:06)
[2016-12-13] MEDS ORDERED: CIPROFLOXACIN 500 MG TAB PO ONE (14:45)
[2017-01-21] MEDS ORDERED: LISI-515 PO (10:30)
== END 2016-12-13 16:16 | disposition home or self-care (01) ==
LOC: NEPD 12:40 → NEDA 15:19 → UNDODISOB 15:46 → NEPFCDU 23:04
PROVIDERS: ADMIT Family Medicine; ATTEND Family Medicine
DX: K29.70 Gastritis, unspecified, without bleeding (principal); K21.9 Gastro-esophageal reflux disease without esophagitis; K44.9 Diaphragmatic hernia without obstruction or gangrene; N39.0 Urinary tract infection, site not specified; B96.20 Unspecified Escherichia coli [E. coli] as the cause of diseases classified elsewhere; I10 Essential (primary) hypertension; F41.9 Anxiety disorder, unspecified; E87.6 Hypokalemia; F12.90 Cannabis use, unspecified, uncomplicated; F17.210 Nicotine dependence, cigarettes, uncomplicated; Z87.11 Personal history of peptic ulcer disease; Z79.899 Other long term (current) drug therapy
CPT/HCPCS: 00740; 43239; 74177; 76700; 80048; 80053; 80307; 81001; 82607; 82746; 83605; 83690; 83735; 84100; 84132; 84703; 85025; 85027; 86140; 87077; 87086; 87186; 87205; 87328; 87329; 87493; 87506; 88305; 88312; 93005; 96365; 96366; 96375; 96376; 99285; G0378; J0744; J0780; J1200; J1644; J1885; J2060; J2270; J2405; J3411; J3480; J7030; Q9967

== ENCOUNTER 2017-04-07 18:26 | Emergency (ER) | payer SELFPAY ==
[~2017-04-07 18:26] MED LIST changes: -ALBUAER3 INH; -BENA25TA6 PO; +BUSP10TA PO; -DICL75TA PO; -EPIP0.3I IM; +LISI-515 PO; +LORA0.5T PO; -MEDR4PAK PO; +PANT40TA3 PO; -PROPOFOL 200 MG/20 ML AMP IV ONE; -ROBA500T PO; -ZANT300T PO
[2017-04-07 18:27] VITALS: BP 140/95; PULSE 119; RESP 12; TEMP 97.7; O2SAT 99
--- NOTE | 2017-04-07 19:36 | PD ---
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 Said she had unprotected sex about 7 days ago. Pain is lower pelvic region. Associated with nausea. Also with migraine headache for 7 days. Denies any fever, neck pain, visual changes , vomiting, abdominal pain, focal weakness or numbness. PFSH Past Medical History Asthma: Yes (as child) Blood Disorders: No Anxiety: Yes Depression: Yes Heart Rhythm Problems: No Cancer: No Cardiovascular Problems: Yes High Cholesterol: No Chest Pain: No Congestive Heart Failure: No COPD: No Diabetes: No Diminished Hearing: Yes Endocrine: No Gastrointestinal Disorders: Yes (ULCERS ) Genitourinary: No Hypertension: Yes Immune Disorder: No Musculoskeletal: Yes (herniated disc L3 -s1) Neurologic: No Psychiatric: Yes Reproductive: No Sleep Apnea: No Thyroid Disease: No ?: Not LMP: 04/04/17 : 1 Para: 1 Past Surgical History Other Surgery: No Social History Alcohol Use: Yes (social) Tobacco Use: Yes (1/2PPD) Substance Use: No (denies) Allergies-Medications (Allergen,Severity, Reaction): Coded Allergies: No Known Allergies (Verified Allergy, Unknown, 04/07/17) *MDRO Multi-Drug Resistant Organism (Verified Adverse Reaction, Unknown, 04/07/17) 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 SKIN: Focused skin assessment warm/dry. HEAD: Atraumatic. Normocephalic. CARDIOVASCULAR: Regular rate and rhythm. No murmur appreciated. RESPIRATORY: No accessory muscle use. Clear to auscultation. Breath sounds equal bilaterally. GASTROINTESTINAL: Abdomen soft, non-tender, nondistended. PELVIC: Vulva does not really appear edematous. No vesicular lesions. +brown, bloody vaginal discharge. Fishy smell. No CMT or adnexal tenderness bilaterally. +Lymphadenitis left groin. MUSCULOSKELETAL: No obvious deformities. No clubbing. No cyanosis. No edema. NEUROLOGICAL: Awake and alert. No obvious cranial nerve deficits. Motor grossly within normal limits. Normal speech. PSYCHIATRIC: Appropriate mood and affect; insight and judgment normal. Data Data Last Documented VS Vital Signs Date Time Temp Pulse Resp B/P (MAP) Pulse Ox O2 Delivery O2 Flow Rate FiO2 04/07/17 21:37 97 14 112/58 (76) 98 04/07/17 18:27 97.7 Orders Orders Complete Blood Count With Diff (04/07/17 19:36) Basic Metabolic Panel (Bmp) (04/07/17 19:36) Gc And Chlamydia Pcr (04/07/17 19:36) Wet Prep Profile (04/07/17 19:36) Urinalysis - C+S If Indicated (04/07/17 19:36) Ed Urine Pregnancytest Poc (04/07/17 19:36) Ketorolac Inj (Toradol Inj) (04/07/17 19:45) Sodium Chlor 0.9% 1000 Ml Inj (Ns 1000 M (04/07/17 19:45) Urine Culture (04/07/17 19:25) Potassium Chloride (Kcl) (04/07/17 20:30) Azithromycin Powd Pack (Zithromax Powd P (04/07/17 21:00) Ceftriaxone Inj (Rocephin Inj) (04/07/17 21:00) Acetaminophen (Tylenol) (04/07/17 21:15) Non-Formulary Drug (04/07/17 21:45) Metronidazole (Flagyl) (04/07/17 22:15) Ed Discharge Order (04/07/17 22:31) Labs Laboratory Tests Test 04/07/17 19:25 04/07/17 19:45 04/07/17 20:43 Urine Color LIGHT-YELLOW Urine Turbidity CLEAR Urine pH 6.5 Urine Specific [place] 1.008 Urine Protein NEG mg/dL Urine Glucose (UA) NEG mg/dL Urine Ketones NEG mg/dL Urine Occult Blood TRACE Urine Nitrite NEG Urine Bilirubin NEG Urine Urobilinogen LESS THAN 2.0 MG/DL Urine Leukocyte Esterase LARGE Urine RBC LESS THAN 1 /hpf Urine WBC 15 /hpf Urine Squamous Epithelial Cells <1 /hpf Urine Hyaline Casts 1 /lpf Microscopic Urinalysis Comment CULTURE INDICATED White Blood Count 9.8 TH/MM3 Red Blood Count 3.71 MIL/MM3 Hemoglobin 12.3 GM/DL Hematocrit 36.8 % Mean Corpuscular Volume 99.2 FL Mean Corpuscular Hemoglobin 33.3 PG Mean Corpuscular Hemoglobin Concent 33.5 % Red Cell Distribution Width 14.7 % Platelet Count 293 TH/MM3 Mean Platelet Volume 7.1 FL Neutrophils (%) (Auto) 59.3 % Lymphocytes (%) (Auto) 32.6 % Monocytes (%) (Auto) 6.5 % Eosinophils (%) (Auto) 1.3 % Basophils (%) (Auto) 0.3 % Neutrophils # (Auto) 5.8 TH/MM3 Lymphocytes # (Auto) 3.2 TH/MM3 Monocytes # (Auto) 0.6 TH/MM3 Eosinophils # (Auto) 0.1 TH/MM3 Basophils # (Auto) 0.0 TH/MM3 CBC Comment DIFF FINAL Differential Comment Blood Urea Nitrogen 7 MG/DL Creatinine 0.63 MG/DL Random Glucose 99 MG/DL Calcium Level 8.5 MG/DL Sodium Level 142 MEQ/L Potassium Level 3.2 MEQ/L Chloride Level 106 MEQ/L Carbon Dioxide Level 27.7 MEQ/L Anion Gap 8 MEQ/L Estimat Glomerular Filtration Rate 111 ML/MIN Clue Cells (Wet Prep) PRESENT Vaginal Trichomonas (Wet Prep) NONE SEEN Vaginal Yeast (Wet Prep) NONE SEEN MDM Medical Decision Making Medical Screen Exam Complete: Yes Emergency Medical Condition: Yes Differential Diagnosis Gonorrhea vs. chlamydia vs. cystitis vs. lymphadenitis vs. migraine headache Narrative Course 31yo F with vaginal discharge, dysuria after unprotected sexual intercourse. Also with left inguinal lymph node. She is nontoxic appearing. HR initially 119 at triage but repeat HR is 97bpm here. Afebrile. Labs reviewed, no leukocytosis. Mild hypokalemia at 3.2, replaced orally. UA showed large leukocyte, WBC 15. Could be from vaginal discharge but pt is also symptomatic so will treat with antibiotics to cover UTI as well. Wet prep showed positive clue cell, first dose of metronidazole give. Pt empirically given ceftriaxone with lidocaine IM and azithromycin PO. Urine negative. Pt given toradol and acetaminophen with improvement of pain. Said headache has resolved. Said still mcnulty when she urinates. Pt is eating at bedside. Return precautions given. 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 Please do not drink alcohol while taking metronidazole. Return to the ED if symptoms worsen. Med/Other Pt SpecificInfo: Prescription(s) given Scripts Nitrofurantoin Monohydrate Macrocrystals (Macrobid) 100 Mg Cap 100 MG PO BID for Infection for 5 Days, #10 CAP 0 Refills Prov: Heather Red DO 04/07/17 Metronidazole (Metronidazole) 500 Mg Tab 500 MG PO BID for Infection for 7 Days, #14 TAB 0 Refills Prov: Heather Red DO 04/07/17 Disposition: 01 DISCHARGE HOME Condition: Stable Heather Red DO Apr 07, 2017 19:36
[2017-04-07] MEDS ORDERED: KETOROLAC TROMETHAMINE 30 MG/ML (IVP) VIAL IV PUSH ONE (19:45)
[2017-04-07] MEDS ORDERED: SODIUM CHLOR 0.9% 1000 ML INJ 1,000 ML IV ONE (19:45)
[2017-04-07 19:56] LABS: BILIRUBIN, URINE NEG (NEG); BLOOD, URINE TRACE (NEG); GLUCOSE,URINE NEG (NEG); HYALINE CAST, URINE 1 /lpf (RARE); KETONE, URINE NEG (NEG); NITRITE,URINE NEG (NEG); PH, URINE 6.5 (5.0-8.5); SQUAMOUS EPITHELIAL CELL URINE <1 /hpf (0-5); URINE COLOR LIGHT-YELLOW (YELLW/STRAW); URINE LEUKOCYTE ESTERASE LARGE (NEG)
[2017-04-07 20:06] LABS: AUTOMATED NEUTROPHIL # 5.8 TH/MM3 (1.8-7.7); BASOPHIL % 0.3 % (0.0-2.0); EOSINOPHIL # 0.1 TH/MM3 (0-0.4); EOSINOPHIL % 1.3 % (0.0-4.0); HEMATOCRIT 36.8 % (35.0-46.0); HEMOGLOBIN 12.3 GM/DL (11.6-15.3); LYMPH % 32.6 % (9.0-44.0); LYMPHOCYTE # 3.2 TH/MM3 (1.0-4.8); MEAN CELL VOLUME 99.2 FL (80.0-100.0); MEAN CORPUSCULAR HEMOGLOBIN 33.3 PG (27.0-34.0); MEAN CORPUSCULAR HGB CONC 33.5 % (32.0-36.0); MEAN PLATELET VOLUME 7.1 FL (7.0-11.0); MONO % 6.5 % (0.0-8.0); MONOCYTE # 0.6 TH/MM3 (0-0.9); NEUT % 59.3 % (16.0-70.0); PLATELET COUNT 293 TH/MM3 (150-450); RED BLOOD COUNT 3.71 MIL/MM3 (4.00-5.30); RED CELL DISTRIBUTION WIDTH 14.7 % (11.6-17.2); WHITE BLOOD COUNT 9.8 TH/MM3 (4.0-11.0)
[2017-04-07 20:24] LABS: BICARBONATE 27.7 MEQ/L (21.0-32.0); CALCIUM 8.5 MG/DL (8.5-10.1); CREATININE 0.63 MG/DL (0.50-1.00)
[2017-04-07] MEDS ORDERED: POTASSIUM CHLORIDE 20 MEQ CONTROLLED RELEASE TAB PO ONE (20:30)
[2017-04-07] MEDS ORDERED: cefTRIAXone 250 MG VIAL IM ONE (21:00)
[2017-04-07] MEDS ORDERED: LIDOCAINE HCL 1% 50 ML VIAL IM ONE (21:00)
[2017-04-07] MEDS ORDERED: AZITHROMYCIN PWD FOR SUSP 1 GM PACKET PO ONE (21:00)
[2017-04-07] MEDS ORDERED: ACETAMINOPHEN 325 MG TAB PO ONE (21:15)
[2017-04-07 21:37] VITALS: BP 112/58; PULSE 97; RESP 14; O2SAT 98
[2017-04-07] MEDS ORDERED: LIDOCAINE IM ONE (21:45)
[2017-04-07] MEDS ORDERED: metroNIDAZOLE 500 MG TAB PO ONE (22:15)
[2017-04-07] MEDS ORDERED: METR1TAB76 PO (22:29)
[2017-04-07] MEDS ORDERED: MACR100C2 PO (22:29)
== END 2017-04-07 22:57 | disposition home or self-care (01) ==
LOC: NEPD 18:26
DX: N76.0 Acute vaginitis (principal); B96.89 Other specified bacterial agents as the cause of diseases classified elsewhere; N39.0 Urinary tract infection, site not specified; R31.9 Hematuria, unspecified; F17.200 Nicotine dependence, unspecified, uncomplicated
CPT/HCPCS: 80048; 81001; 84703; 85025; 87086; 87210; 87491; 87591; 96372; 96374; 99284; J0696; J1885; J7030